=== PATIENT | female | born 1940 | race Caucasian/White ===

== ENCOUNTER 2021-02-06 10:03 | Inpatient (IN) | payer MEDICARE ==
[2021-02-06 10:41] LABS: Mean Corpuscular HGB CONC 33.2 g/dL (32.0-36.0); Mean Corpuscular Hemoglobin 30.4 pg (27.0-31.0); Mean Corpuscular Volume 91.5 fL (78.0-98.0); Mean Platelet Volume 8.1 fL (7.4-10.4); Platelet Count 198 thou/uL (130-400); RBC Distribution Width 16.5 % (11.5-14.5); Red Blood Cell (RBC) Count 2.63 mill/uL (4.20-5.40); White Blood Cell (WBC) Count 11.3 thou/uL (4.8-10.8)
[2021-02-06] MEDS ORDERED: Cefepime 2 GM VIAL ONE (10:52)
[2021-02-06 10:54] LABS: Bilirubin Negative (Negative); Blood, Urine Large (Negative); Glucose, Urine (Dipstick) Negative (Negative); Ketone, Urine Negative (Negative); Leukocyte Large (Negative); Nitrite Positive (Negative); Protein, Urine (Dipstick) 30 mg/dL (Neg-Trace); Urobilinogen 0.2 mg/dL (Less than 2); pH, Urine 5.5 (5.0-9.0)
[2021-02-06 11:03] LABS: Clarity Turbid (Clear)
[2021-02-06 11:04] LABS: Bacteria/HPF 4+ HPF (None Seen); WBC/HPF Greater Than 50 HPF (0-3)
[2021-02-06 11:04] LABS: Prothrombin Time 91.6 sec (12.0-14.7)
[2021-02-06 11:05] LABS: ALT (SGPT) 21 U/L (8-55); AST (SGOT) 23 U/L (5-34); Albumin 2.9 g/dL (3.4-4.8); Alkaline Phosphatase 112 U/L (40-110); Anion Gap 15 mmol/L (10-20); BUN (Urea Nitrogen) 65 mg/dL (9.8-20.1); Bilirubin, Total 0.5 mg/dL (0.2-1.2); Calc. Creatinine Clearance 0 mL/min (70-130); Calcium 8.4 mg/dL (7.8-10.44); Carbon Dioxide 31 mmol/L (23-31); Chloride 94 mmol/L (98-107); Globulin 2.9 g/dL (2.4-3.5); Glucose 109 mg/dL (83-110); INR-International Normal Ratio 11.5; PTT 177.5 sec (22.9-36.1); Potassium 3.6 mmol/L (3.5-5.1); Protein, Total 5.8 g/dL (5.8-8.1); Sodium 136 mmol/L (136-145)
[2021-02-06 11:22] LABS: Band 17 % (5-11); Eosinophils 1 % (0-10); Lymphocytes 15 % (21-51); MDiff Complete? YES; Metamyelocyte 2 % (0-0); Monocytes 9 % (0-10); Myelocyte 2 % (0-0); Neutrophil 54 % (42-75); Nucleated RBC 1 % (0); Platelet Morphology Comment Appears Adequate; Polychromasia SLIGHT = 2-3 cells (100X) (0-2/hpf)
[2021-02-06 11:27] LABS: CKMB 2.3 ng/mL (0-6.6)
[2021-02-06] MEDS ORDERED: Vancomycin 1 GM/200 ML BAG ONE (11:27)
[2021-02-06] MEDS ORDERED: Phytonadione 10 MG/ML AMP PO SCH (12:00)
[2021-02-06 12:18] LABS: SARS-CoV-2 NAA Rapid Test Not Detected (NotDetected)
[2021-02-06 13:45] LABS: Hemoglobin 7.6 g/dL (12.0-16.0); Mean Corpuscular HGB CONC 33.2 g/dL (32.0-36.0); Mean Corpuscular Hemoglobin 30.3 pg (27.0-31.0); Mean Corpuscular Volume 91.5 fL (78.0-98.0); Mean Platelet Volume 8.1 fL (7.4-10.4); Platelet Count 186 thou/uL (130-400); RBC Distribution Width 16.5 % (11.5-14.5); Red Blood Cell (RBC) Count 2.49 mill/uL (4.20-5.40); White Blood Cell (WBC) Count 11.8 thou/uL (4.8-10.8)
[2021-02-06 13:58] LABS: Prothrombin Time 99.3 sec (12.0-14.7)
[2021-02-06] MEDS ORDERED: cefTRIAXone\\ROCEPHIN 1 GM in Sodium Chloride 0.9% 100 ML IVPB SCH (14:00)
[2021-02-06 14:02] LABS: INR-International Normal Ratio 12.7; PTT 190.7 sec (22.9-36.1)
[2021-02-06 14:14] LABS: Anisocytosis SLIGHT = 6-15 cells (100X) (0-5/hpf); Band 33 % (5-11); Lymphocytes 8 % (21-51); MDiff Complete? YES; Metamyelocyte 2 % (0-0); Monocytes 9 % (0-10); Myelocyte 2 % (0-0); Neutrophil 44 % (42-75); Platelet Morphology Comment Appears Adequate; Polychromasia MODERATE = 3-4 cells (100X) (0-2/hpf); Reactive Lymphocytes 2 % (0-10)
[2021-02-06] MEDS ORDERED: Piperacillin/Tazobactam 3.375 GM VIAL ONE (15:04)
[2021-02-06] MEDS: Sodium Chloride 0.9% 1,000 ML IV SCH (15:09)
[2021-02-06] MEDS: Piperacillin/Tazobactam 3.375 GM in Sodium Chloride 0.9% 100 ML IVPB SCH ×2 (15:15→21:08)
[2021-02-06] MEDS ORDERED: Phytonadione 5 MG in Sodium Chloride 0.9% 50 ML IVPB SCH (18:00)
[2021-02-06] MEDS: Famotidine/PF 20 mg/2ml Vial SLOW IVP SCH (21:08)
[2021-02-06] MEDS: Guaifenesin DM 100-10/5 ML UDCUP PO PRN (21:08)
[2021-02-07 01:50] LABS: Hemoglobin 7.2 g/dL (12.0-16.0); Mean Corpuscular HGB CONC 33.9 g/dL (32.0-36.0); Mean Corpuscular Volume 91.5 fL (78.0-98.0); Mean Platelet Volume 8.2 fL (7.4-10.4); Platelet Count 189 thou/uL (130-400); RBC Distribution Width 16.7 % (11.5-14.5); Red Blood Cell (RBC) Count 2.31 mill/uL (4.20-5.40); White Blood Cell (WBC) Count 12.1 thou/uL (4.8-10.8)
[2021-02-07 01:56] LABS: INR-International Normal Ratio 1.9; Prothrombin Time 21.8 sec (12.0-14.7)
[2021-02-07 01:57] LABS: PTT 67.2 sec (22.9-36.1)
[2021-02-07 02:14] LABS: Band 15 % (5-11); Lymphocytes 11 % (21-51); MDiff Complete? YES; Metamyelocyte 1 % (0-0); Monocytes 7 % (0-10); Myelocyte 1 % (0-0); Neutrophil 65 % (42-75)
[2021-02-07 03:23] LABS: Anion Gap 14 mmol/L (10-20); BUN (Urea Nitrogen) 59 mg/dL (9.8-20.1); Calc. Creatinine Clearance 41 mL/min (70-130); Carbon Dioxide 24 mmol/L (23-31); Chloride 101 mmol/L (98-107); Glucose 107 mg/dL (83-110); Potassium 3.4 mmol/L (3.5-5.1); Sodium 136 mmol/L (136-145)
[2021-02-07] MEDS: Piperacillin/Tazobactam 3.375 GM in Sodium Chloride 0.9% 100 ML IVPB SCH ×2 (05:32→15:19)
[2021-02-07] MEDS: Sodium Chloride 0.9% 1,000 ML IV SCH ×3 (05:42→21:21)
[2021-02-07] MEDS: Mometasone 200 MCG/Formoterol 5 MCG 120 PUFF INHALER INH SCH ×2 (07:10→19:14)
[2021-02-07 07:55] LABS: PT - Undiluted 75.4 SEC (12.0-14.7); PTT - Undiluted 140.4 SEC (22.9-36.1)
[2021-02-07 08:03] LABS: PTT 1:1 Mix 39.9 SEC
[2021-02-07 09:43] LABS: PT 1:1 37C-90 min. Incubation 21.2 SEC
[2021-02-07 09:44] LABS: PTT 1:1 37C/90 MIN Incubation 56.9 SEC
[2021-02-07] MEDS: Trospium 20 MG TAB PO SCH (09:55)
[2021-02-07] MEDS: Carvedilol 6.25 MG TAB PO SCH ×2 (09:56→21:20)
[2021-02-07] MEDS: Digoxin 0.125 MG TAB PO SCH (09:56)
[2021-02-07 13:54] LABS: INR-International Normal Ratio 1.3; PTT 43.6 sec (22.9-36.1); Prothrombin Time 16.9 sec (12.0-14.7)
[2021-02-07 14:02] LABS: Hemoglobin 6.9 g/dL (12.0-16.0); Mean Corpuscular Hemoglobin 31.2 pg (27.0-31.0); Mean Platelet Volume 8.2 fL (7.4-10.4); Platelet Count 200 thou/uL (130-400); RBC Distribution Width 16.7 % (11.5-14.5); Red Blood Cell (RBC) Count 2.21 mill/uL (4.20-5.40)
[2021-02-07 14:25] LABS: Band 15 % (5-11); Bite Cells SLIGHT = 2-5 cells (100X) (0-1/hpf); Hypochromia SLIGHT = 6-15 cells (100X) (0-5/hpf); Lymphocytes 13 % (21-51); MDiff Complete? YES; Metamyelocyte 2 % (0-0); Monocytes 12 % (0-10); Myelocyte 1 % (0-0); Neutrophil 57 % (42-75); Ovalocytes SLIGHT = 2-5 cells (100X) (0-1/hpf); Platelet Morphology Comment Appears Adequate; Polychromasia MODERATE = 3-4 cells (100X) (0-2/hpf)
[2021-02-07] MEDS: Benzonatate 100 MG CAP PO PRN (16:17)
[2021-02-07] MEDS: Warfarin Sodium 5 MG TAB PO SCH (16:18)
[2021-02-07] MEDS ORDERED: Heparin 10,000 UNITS/ 10 ML VIAL SLOW IVP SCH (18:15)
[2021-02-07] MEDS: Guaifenesin DM 100-10/5 ML UDCUP PO PRN (18:27)
[2021-02-07 19:10] LABS: Hemoglobin 6.4 g/dL (12.0-16.0); Platelet Count 209 thou/uL (130-400)
[2021-02-07] MEDS: Atorvastatin Calcium 40 MG TAB PO SCH (21:20)
[2021-02-07] MEDS: Famotidine/PF 20 mg/2ml Vial SLOW IVP SCH (21:20)
[2021-02-07] MEDS: traZODone HCl 50 MG TAB PO SCH (21:20)
[2021-02-07] MEDS: Pramipexole Di-HCl 0.25 MG TAB PO SCH (21:20)
[2021-02-07] MEDS: Heparin 25,000 units/D5W 500 ML IVPB SCH (22:41)
[2021-02-07] MEDS: Prazosin HCl 1 MG CAP PO SCH (22:42)
[2021-02-08] MEDS: Piperacillin/Tazobactam 3.375 GM in Sodium Chloride 0.9% 100 ML IVPB SCH ×4 (00:36→21:23)
[2021-02-08 01:26] LABS: PTT 250.8 sec (22.9-36.1)
[2021-02-08 01:36] LABS: Hemoglobin 7.3 g/dL (12.0-16.0); Mean Corpuscular Hemoglobin 30.3 pg (27.0-31.0); Mean Corpuscular Volume 91.8 fL (78.0-98.0); Mean Platelet Volume 8.2 fL (7.4-10.4); Platelet Count 201 thou/uL (130-400); RBC Distribution Width 16.1 % (11.5-14.5); White Blood Cell (WBC) Count 14.3 thou/uL (4.8-10.8)
[2021-02-08 02:02] LABS: Eosinophils 1 % (0-10); Lymphocytes 17 % (21-51); MDiff Complete? YES; Metamyelocyte 7 % (0-0); Monocytes 7 % (0-10); Myelocyte 1 % (0-0); Neutrophil 67 % (42-75); Platelet Morphology Comment Appears Adequate
[2021-02-08 02:04] LABS: INR-International Normal Ratio 1.6; Prothrombin Time 19.6 sec (12.0-14.7)
[2021-02-08 02:28] LABS: PTT Greater than 250.0 sec (22.9-36.1)
[2021-02-08] MEDS: Sodium Chloride 0.9% 1,000 ML IV SCH ×2 (06:36→16:20)
[2021-02-08] MEDS: Mometasone 200 MCG/Formoterol 5 MCG 120 PUFF INHALER INH SCH ×2 (07:21→19:34)
[2021-02-08] MEDS: Vitamin E 400 UNITS CAP PO SCH (09:18)
[2021-02-08] MEDS: Carvedilol 6.25 MG TAB PO SCH ×2 (09:18→21:20)
[2021-02-08] MEDS: Calcium Carbonate 600 MG + Vit D TAB PO SCH (09:18)
[2021-02-08] MEDS: Ferrous Sulfate 325 MG TAB PO SCH (09:18)
[2021-02-08] MEDS: Trospium 20 MG TAB PO SCH (09:18)
[2021-02-08] MEDS: Digoxin 0.125 MG TAB PO SCH (09:18)
[2021-02-08] MEDS: Cholecalciferol 1,000 UNITS (25 MCG) TAB PO SCH (09:18)
[2021-02-08 11:17] LABS: Actual Bicarbonate (HCO3a) 25.5 mEq/L (22-28); Base Excess (BEa) 0.5 mEq/L (-2.0 to +3.0); CO2 Tension 42.8 mmHg (35.0-45.0); Carboxyhemoglobin (COHb) 1.1 gm% (0.0-3.0); Hemoglobin (Hb) 8.5 g/dL (12.0-16.0); O2 Tension (PaO2), arterial 79.1 mmHg (> 60.0); Potassium - ABG Lab 3.31 mmol/L (3.70-5.30); pH, Arterial 7.39 (7.35-7.45)
[2021-02-08 11:18] LABS: Puncture Site RBA
[2021-02-08 12:36] LABS: PTT 229.6 sec (22.9-36.1)
[2021-02-08] MEDS: Warfarin Sodium 5 MG TAB PO SCH (17:25)
[2021-02-08] MEDS: traZODone HCl 50 MG TAB PO SCH (21:21)
[2021-02-08] MEDS: Atorvastatin Calcium 40 MG TAB PO SCH (21:21)
[2021-02-08] MEDS: Prazosin HCl 1 MG CAP PO SCH (21:21)
[2021-02-08] MEDS: Pramipexole Di-HCl 0.25 MG TAB PO SCH (21:21)
[2021-02-08] MEDS: Famotidine/PF 20 mg/2ml Vial SLOW IVP SCH (21:22)
[2021-02-08 21:56] LABS: PTT 180.4 sec (22.9-36.1)
[2021-02-08] MEDS: Guaifenesin DM 100-10/5 ML UDCUP PO PRN (22:06)
[2021-02-09] MEDS: Heparin 25,000 units/D5W 500 ML IVPB SCH (02:59)
[2021-02-09] MEDS: Sodium Chloride 0.9% 1,000 ML IV SCH (03:03)
[2021-02-09 04:36] LABS: INR-International Normal Ratio 1.8; Prothrombin Time 21.5 sec (12.0-14.7)
[2021-02-09 04:56] LABS: Band 16 % (5-11); Hemoglobin 7.4 g/dL (12.0-16.0); Lymphocytes 9 % (21-51); MDiff Complete? YES; Mean Corpuscular HGB CONC 33.3 g/dL (32.0-36.0); Mean Corpuscular Hemoglobin 30.6 pg (27.0-31.0); Mean Corpuscular Volume 91.8 fL (78.0-98.0); Mean Platelet Volume 8.5 fL (7.4-10.4); Metamyelocyte 6 % (0-0); Monocytes 11 % (0-10); Neutrophil 58 % (42-75); Platelet Count 241 thou/uL (130-400); Platelet Morphology Comment Appears Adequate; RBC Distribution Width 16.2 % (11.5-14.5); Red Blood Cell (RBC) Count 2.41 mill/uL (4.20-5.40); White Blood Cell (WBC) Count 13.2 thou/uL (4.8-10.8)
[2021-02-09 05:00] LABS: Anion Gap 13 mmol/L (10-20); BUN (Urea Nitrogen) 33 mg/dL (9.8-20.1); Calc. Creatinine Clearance 51 mL/min (70-130); Calcium 8.3 mg/dL (7.8-10.44); Carbon Dioxide 21 mmol/L (23-31); Chloride 106 mmol/L (98-107); Glucose 92 mg/dL (83-110); Potassium 3.4 mmol/L (3.5-5.1); Sodium 137 mmol/L (136-145)
[2021-02-09] MEDS: Piperacillin/Tazobactam 3.375 GM in Sodium Chloride 0.9% 100 ML IVPB SCH ×3 (05:44→21:47)
[2021-02-09] MEDS: Mometasone 200 MCG/Formoterol 5 MCG 120 PUFF INHALER INH SCH ×2 (07:27→18:53)
[2021-02-09] MEDS: Ferrous Sulfate 325 MG TAB PO SCH (09:28)
[2021-02-09] MEDS: Vitamin E 400 UNITS CAP PO SCH (09:29)
[2021-02-09] MEDS: Trospium 20 MG TAB PO SCH (09:29)
[2021-02-09] MEDS: Digoxin 0.125 MG TAB PO SCH (09:30)
[2021-02-09] MEDS: Carvedilol 6.25 MG TAB PO SCH ×2 (09:31→21:06)
[2021-02-09] MEDS: Calcium Carbonate 600 MG + Vit D TAB PO SCH (09:32)
[2021-02-09] MEDS: Cholecalciferol 1,000 UNITS (25 MCG) TAB PO SCH (09:32)
[2021-02-09] MEDS: Acetaminophen 325 MG TAB PO PRN (10:33)
[2021-02-09] MEDS: Guaifenesin DM 100-10/5 ML UDCUP PO PRN (11:34)
[2021-02-09] MEDS: Benzonatate 100 MG CAP PO PRN (14:37)
[2021-02-09 16:12] LABS: PTT 132.5 sec (22.9-36.1)
[2021-02-09] MEDS: Warfarin Sodium 5 MG TAB PO SCH (16:26)
[2021-02-09 18:29] LABS: Hemoglobin 7.3 g/dL (12.0-16.0); Platelet Count 236 thou/uL (130-400)
[2021-02-09] MEDS: Famotidine/PF 20 mg/2ml Vial SLOW IVP SCH (21:06)
[2021-02-09] MEDS: traZODone HCl 50 MG TAB PO SCH (21:06)
[2021-02-09] MEDS: Atorvastatin Calcium 40 MG TAB PO SCH (21:06)
[2021-02-09] MEDS: Prazosin HCl 1 MG CAP PO SCH (21:06)
[2021-02-09] MEDS: Pramipexole Di-HCl 0.25 MG TAB PO SCH (21:06)
[2021-02-10] MEDS: Acetaminophen 325 MG TAB PO PRN ×2 (04:27→17:03)
[2021-02-10 04:33] LABS: Hemoglobin 7.1 g/dL (12.0-16.0); Mean Corpuscular HGB CONC 33.9 g/dL (32.0-36.0); Mean Corpuscular Hemoglobin 31.3 pg (27.0-31.0); Mean Corpuscular Volume 92.3 fL (78.0-98.0); Mean Platelet Volume 8.1 fL (7.4-10.4); Platelet Count 263 thou/uL (130-400); RBC Distribution Width 16.5 % (11.5-14.5); Red Blood Cell (RBC) Count 2.28 mill/uL (4.20-5.40); White Blood Cell (WBC) Count 12.2 thou/uL (4.8-10.8)
[2021-02-10 04:35] LABS: INR-International Normal Ratio 2.9; Prothrombin Time 30.7 sec (12.0-14.7)
[2021-02-10] MEDS: Benzonatate 100 MG CAP PO PRN ×2 (04:38→21:33)
[2021-02-10 04:45] LABS: Anion Gap 13 mmol/L (10-20); BUN (Urea Nitrogen) 26 mg/dL (9.8-20.1); Calc. Creatinine Clearance 53 mL/min (70-130); Calcium 8.5 mg/dL (7.8-10.44); Carbon Dioxide 22 mmol/L (23-31); Chloride 107 mmol/L (98-107); Glucose 123 mg/dL (83-110); Potassium 3.6 mmol/L (3.5-5.1); Sodium 138 mmol/L (136-145)
[2021-02-10 04:54] LABS: Band 18 % (5-11); Eosinophils 3 % (0-10); Lymphocytes 8 % (21-51); MDiff Complete? YES; Metamyelocyte 5 % (0-0); Monocytes 6 % (0-10); Myelocyte 4 % (0-0); Neutrophil 56 % (42-75); Platelet Morphology Comment Appears Adequate
[2021-02-10] MEDS: Piperacillin/Tazobactam 3.375 GM in Sodium Chloride 0.9% 100 ML IVPB SCH ×3 (06:24→21:33)
[2021-02-10] MEDS: Mometasone 200 MCG/Formoterol 5 MCG 120 PUFF INHALER INH SCH ×2 (07:21→19:09)
[2021-02-10] MEDS: Trospium 20 MG TAB PO SCH (08:08)
[2021-02-10] MEDS: Digoxin 0.125 MG TAB PO SCH (08:08)
[2021-02-10] MEDS: Calcium Carbonate 600 MG + Vit D TAB PO SCH (08:09)
[2021-02-10] MEDS: Ferrous Sulfate 325 MG TAB PO SCH (08:09)
[2021-02-10] MEDS: Vitamin E 400 UNITS CAP PO SCH (08:09)
[2021-02-10] MEDS: Cholecalciferol 1,000 UNITS (25 MCG) TAB PO SCH (08:09)
[2021-02-10] MEDS: Carvedilol 6.25 MG TAB PO SCH ×2 (08:09→21:32)
[2021-02-10] MEDS: Warfarin Sodium 5 MG TAB PO SCH (17:04)
[2021-02-10] MEDS: Guaifenesin DM 100-10/5 ML UDCUP PO PRN (18:21)
[2021-02-10] MEDS: Prazosin HCl 1 MG CAP PO SCH (21:32)
[2021-02-10] MEDS: Atorvastatin Calcium 40 MG TAB PO SCH (21:32)
[2021-02-10] MEDS: Famotidine/PF 20 mg/2ml Vial SLOW IVP SCH (21:32)
[2021-02-10] MEDS: Pramipexole Di-HCl 0.25 MG TAB PO SCH (21:32)
[2021-02-10] MEDS: traZODone HCl 50 MG TAB PO SCH (21:33)
[2021-02-11] MEDS: Piperacillin/Tazobactam 3.375 GM in Sodium Chloride 0.9% 100 ML IVPB SCH ×3 (05:59→21:48)
[2021-02-11 07:11] LABS: Prothrombin Time 42.2 sec (12.0-14.7)
[2021-02-11] MEDS: Mometasone 200 MCG/Formoterol 5 MCG 120 PUFF INHALER INH SCH ×2 (07:12→19:37)
[2021-02-11 07:27] LABS: INR-International Normal Ratio 4.3
[2021-02-11] MEDS: Calcium Carbonate 600 MG + Vit D TAB PO SCH (08:41)
[2021-02-11] MEDS: Trospium 20 MG TAB PO SCH (08:41)
[2021-02-11] MEDS: Carvedilol 6.25 MG TAB PO SCH ×2 (08:42→21:49)
[2021-02-11] MEDS: Cholecalciferol 1,000 UNITS (25 MCG) TAB PO SCH (08:42)
[2021-02-11] MEDS: Digoxin 0.125 MG TAB PO SCH (08:42)
[2021-02-11] MEDS: Vitamin E 400 UNITS CAP PO SCH (08:43)
[2021-02-11] MEDS: Ferrous Sulfate 325 MG TAB PO SCH (08:53)
[2021-02-11] MEDS ORDERED: Furosemide 40 MG/4 ML VIAL SLOW IVP SCH (16:15)
[2021-02-11] MEDS ORDERED: Warfarin Sodium 5 MG TAB PO SCH (17:00)
[2021-02-11 17:38] LABS: Hemoglobin 6.9 g/dL (12.0-16.0); Platelet Count 369 thou/uL (130-400)
[2021-02-11] MEDS ORDERED: Cepastat Lozenges 1 LOZ PO PRN (19:36)
[2021-02-11] MEDS: Atorvastatin Calcium 40 MG TAB PO SCH (21:49)
[2021-02-11] MEDS: traZODone HCl 50 MG TAB PO SCH (21:49)
[2021-02-11] MEDS: Pramipexole Di-HCl 0.25 MG TAB PO SCH (21:49)
[2021-02-11] MEDS: Prazosin HCl 1 MG CAP PO SCH (23:53)
[2021-02-12 04:31] LABS: Prothrombin Time 40.9 sec (12.0-14.7)
[2021-02-12 04:32] LABS: INR-International Normal Ratio 4.1
[2021-02-12] MEDS: Piperacillin/Tazobactam 3.375 GM in Sodium Chloride 0.9% 100 ML IVPB SCH ×3 (05:40→21:54)
[2021-02-12] MEDS: Mometasone 200 MCG/Formoterol 5 MCG 120 PUFF INHALER INH SCH ×2 (07:56→18:35)
[2021-02-12] MEDS: Carvedilol 6.25 MG TAB PO SCH ×2 (09:10→19:56)
[2021-02-12] MEDS: Trospium 20 MG TAB PO SCH (09:10)
[2021-02-12] MEDS: Digoxin 0.125 MG TAB PO SCH (09:10)
[2021-02-12] MEDS: Ferrous Sulfate 325 MG TAB PO SCH (09:10)
[2021-02-12] MEDS: Calcium Carbonate 600 MG + Vit D TAB PO SCH (09:10)
[2021-02-12] MEDS: Cholecalciferol 1,000 UNITS (25 MCG) TAB PO SCH (09:10)
[2021-02-12] MEDS: Vitamin E 400 UNITS CAP PO SCH (10:43)
[2021-02-12 10:56] LABS: Hemoglobin 8.2 g/dL (12.0-16.0); Mean Corpuscular HGB CONC 32.2 g/dL (32.0-36.0); Mean Corpuscular Hemoglobin 29.8 pg (27.0-31.0); Mean Corpuscular Volume 92.4 fL (78.0-98.0); Mean Platelet Volume 7.7 fL (7.4-10.4); Platelet Count 361 thou/uL (130-400); RBC Distribution Width 16.3 % (11.5-14.5); Red Blood Cell (RBC) Count 2.76 mill/uL (4.20-5.40); White Blood Cell (WBC) Count 16.8 thou/uL (4.8-10.8)
[2021-02-12 11:03] LABS: Anion Gap 15 mmol/L (10-20); BUN (Urea Nitrogen) 16 mg/dL (9.8-20.1); Calc. Creatinine Clearance 58 mL/min (70-130); Calcium 8.4 mg/dL (7.8-10.44); Carbon Dioxide 22 mmol/L (23-31); Chloride 106 mmol/L (98-107); Glucose 121 mg/dL (83-110); Potassium 3.3 mmol/L (3.5-5.1); Sodium 140 mmol/L (136-145)
[2021-02-12 11:42] LABS: Lymphocytes 4 % (21-51); MDiff Complete? YES; Monocytes 14 % (0-10); Neutrophil 82 % (42-75); Platelet Morphology Comment Appears Adequate
[2021-02-12] MEDS: Atorvastatin Calcium 40 MG TAB PO SCH (19:56)
[2021-02-12] MEDS: traZODone HCl 50 MG TAB PO SCH (19:57)
[2021-02-12] MEDS: Pramipexole Di-HCl 0.25 MG TAB PO SCH (19:57)
[2021-02-12] MEDS: Prazosin HCl 1 MG CAP PO SCH (21:59)
[2021-02-13 04:55] LABS: Prothrombin Time 43.3 sec (12.0-14.7)
[2021-02-13 04:58] LABS: INR-International Normal Ratio 4.4
[2021-02-13 05:09] LABS: Band 2 % (5-11); Hemoglobin 7.8 g/dL (12.0-16.0); Hypochromia SLIGHT = 6-15 cells (100X) (0-5/hpf); Lymphocytes 9 % (21-51); MDiff Complete? YES; Mean Corpuscular HGB CONC 32.1 g/dL (32.0-36.0); Mean Corpuscular Hemoglobin 29.6 pg (27.0-31.0); Mean Corpuscular Volume 92.1 fL (78.0-98.0); Mean Platelet Volume 7.7 fL (7.4-10.4); Monocytes 5 % (0-10); Neutrophil 84 % (42-75); Nucleated RBC 1 % (0); Platelet Count 369 thou/uL (130-400); Platelet Morphology Comment Appears Adequate; RBC Distribution Width 16.3 % (11.5-14.5); Red Blood Cell (RBC) Count 2.63 mill/uL (4.20-5.40); White Blood Cell (WBC) Count 13.9 thou/uL (4.8-10.8)
[2021-02-13 05:13] LABS: Anion Gap 11 mmol/L (10-20); BUN (Urea Nitrogen) 13 mg/dL (9.8-20.1); Calc. Creatinine Clearance 65 mL/min (70-130); Calcium 8.3 mg/dL (7.8-10.44); Carbon Dioxide 25 mmol/L (23-31); Chloride 109 mmol/L (98-107); Glucose 79 mg/dL (83-110); Potassium 3.3 mmol/L (3.5-5.1); Sodium 142 mmol/L (136-145)
[2021-02-13] MEDS: Piperacillin/Tazobactam 3.375 GM in Sodium Chloride 0.9% 100 ML IVPB SCH ×3 (06:27→21:54)
[2021-02-13] MEDS: Mometasone 200 MCG/Formoterol 5 MCG 120 PUFF INHALER INH SCH ×2 (07:24→19:30)
[2021-02-13] MEDS: Ferrous Sulfate 325 MG TAB PO SCH (08:20)
[2021-02-13] MEDS: Trospium 20 MG TAB PO SCH (08:21)
[2021-02-13] MEDS: Carvedilol 6.25 MG TAB PO SCH ×2 (08:21→20:35)
[2021-02-13] MEDS: Calcium Carbonate 600 MG + Vit D TAB PO SCH (08:21)
[2021-02-13] MEDS: Cholecalciferol 1,000 UNITS (25 MCG) TAB PO SCH (08:21)
[2021-02-13] MEDS: Digoxin 0.125 MG TAB PO SCH (08:21)
[2021-02-13] MEDS: Acetaminophen 325 MG TAB PO PRN ×3 (08:24→21:54)
[2021-02-13] MEDS: Benzonatate 100 MG CAP PO PRN ×3 (08:26→21:54)
[2021-02-13] MEDS ORDERED: Polyethylene Glycol 3350 17 GM Packet PO SCH (11:45)
[2021-02-13] MEDS ORDERED: Phytonadione 5 MG TAB PO SCH (11:45)
[2021-02-13] MEDS ORDERED: Fleet Enema 133 ML BOT PR SCH (16:45)
[2021-02-13 18:17] LABS: Hemoglobin 8.4 g/dL (12.0-16.0); Platelet Count 385 thou/uL (130-400)
[2021-02-13] MEDS: Atorvastatin Calcium 40 MG TAB PO SCH (20:36)
[2021-02-13] MEDS: traZODone HCl 50 MG TAB PO SCH (20:36)
[2021-02-13] MEDS: Pramipexole Di-HCl 0.25 MG TAB PO SCH (21:53)
[2021-02-13] MEDS: Prazosin HCl 1 MG CAP PO SCH (21:53)
[2021-02-13] MEDS: Fluticasone Propionate Nasal Spray 16 gm Bottle NASAL PRN (21:54)
[2021-02-14] MEDS: Piperacillin/Tazobactam 3.375 GM in Sodium Chloride 0.9% 100 ML IVPB SCH ×2 (05:20→05:33)
[2021-02-14] MEDS ORDERED: Polyethylene Glycol 3350 17 GM Packet PO PRN (05:38)
[2021-02-14 06:46] LABS: INR-International Normal Ratio 1.9; Prothrombin Time 21.9 sec (12.0-14.7)
[2021-02-14 07:00] LABS: Anion Gap 9 mmol/L (10-20); BUN (Urea Nitrogen) 13 mg/dL (9.8-20.1); Calc. Creatinine Clearance 67 mL/min (70-130); Calcium 8.3 mg/dL (7.8-10.44); Carbon Dioxide 27 mmol/L (23-31); Chloride 107 mmol/L (98-107); Glucose 96 mg/dL (83-110); Potassium 3.4 mmol/L (3.5-5.1); Sodium 140 mmol/L (136-145)
[2021-02-14] MEDS: Mometasone 200 MCG/Formoterol 5 MCG 120 PUFF INHALER INH SCH ×2 (07:27→21:04)
[2021-02-14 07:50] LABS: Anisocytosis SLIGHT = 6-15 cells (100X) (0-5/hpf); Band 6 % (5-11); Lymphocytes 10 % (21-51); MDiff Complete? YES; Mean Corpuscular HGB CONC 32.6 g/dL (32.0-36.0); Mean Corpuscular Hemoglobin 30.2 pg (27.0-31.0); Mean Corpuscular Volume 92.7 fL (78.0-98.0); Mean Platelet Volume 7.4 fL (7.4-10.4); Metamyelocyte 1 % (0-0); Monocytes 4 % (0-10); Myelocyte 1 % (0-0); Neutrophil 78 % (42-75); Platelet Count 372 thou/uL (130-400); Platelet Morphology Comment Appears Adequate; Polychromasia SLIGHT = 2-3 cells (100X) (0-2/hpf); RBC Distribution Width 16.6 % (11.5-14.5); Red Blood Cell (RBC) Count 2.63 mill/uL (4.20-5.40); White Blood Cell (WBC) Count 12.9 thou/uL (4.8-10.8)
[2021-02-14] MEDS: Trospium 20 MG TAB PO SCH (08:15)
[2021-02-14] MEDS: Ferrous Sulfate 325 MG TAB PO SCH (08:15)
[2021-02-14] MEDS: Digoxin 0.125 MG TAB PO SCH (08:15)
[2021-02-14] MEDS: Calcium Carbonate 600 MG + Vit D TAB PO SCH (08:15)
[2021-02-14] MEDS: Cholecalciferol 1,000 UNITS (25 MCG) TAB PO SCH (08:15)
[2021-02-14] MEDS: Carvedilol 6.25 MG TAB PO SCH ×2 (08:15→21:36)
[2021-02-14] MEDS: Fluticasone Propionate Nasal Spray 16 gm Bottle NASAL PRN (08:27)
[2021-02-14] MEDS: Acetaminophen 325 MG TAB PO PRN ×3 (08:30→21:34)
[2021-02-14] MEDS: Benzonatate 100 MG CAP PO PRN (08:30)
[2021-02-14 11:42] VITALS: BMI 39.5
[2021-02-14] MEDS ORDERED: Chlorhexidine Gluconate 15 ML UDCUP SSP SCH (16:30)
[2021-02-14] MEDS ORDERED: Benzonatate 100 MG CAP PO SCH (16:30)
[2021-02-14] MEDS: traZODone HCl 50 MG TAB PO SCH (21:35)
[2021-02-14] MEDS: Prazosin HCl 1 MG CAP PO SCH (21:35)
[2021-02-14] MEDS: Benzonatate 100 MG CAP PO SCH (21:35)
[2021-02-14] MEDS: Chlorhexidine Gluconate 15 ML UDCUP SSP SCH (21:36)
[2021-02-14] MEDS: Atorvastatin Calcium 40 MG TAB PO SCH (21:36)
[2021-02-14] MEDS: Pramipexole Di-HCl 0.25 MG TAB PO SCH (21:36)
[2021-02-15 06:26] LABS: #Eosinphils 0.2 thou/uL (0.0-0.7); #Lymphocytes 1.2 thou/uL (1.20-3.40); #Monocytes 0.7 thou/uL (0.11-0.59); %Basophils 0.3 % (0.0-1.0); %Lymphocytes 10.1 % (21.0-51.0); %Monocytes 5.7 % (0.0-10.0); Hemoglobin 8.3 g/dL (12.0-16.0); Mean Corpuscular HGB CONC 32.5 g/dL (32.0-36.0); Mean Corpuscular Hemoglobin 30.2 pg (27.0-31.0); Mean Corpuscular Volume 92.9 fL (78.0-98.0); Mean Platelet Volume 7.3 fL (7.4-10.4); Platelet Count 370 thou/uL (130-400); RBC Distribution Width 16.4 % (11.5-14.5); Red Blood Cell (RBC) Count 2.75 mill/uL (4.20-5.40); White Blood Cell (WBC) Count 12.2 thou/uL (4.8-10.8)
[2021-02-15] MEDS: Mometasone 200 MCG/Formoterol 5 MCG 120 PUFF INHALER INH SCH ×2 (06:29→20:33)
[2021-02-15 06:32] LABS: INR-International Normal Ratio 1.6
[2021-02-15 06:45] LABS: Anion Gap 11 mmol/L (10-20); BUN (Urea Nitrogen) 13 mg/dL (9.8-20.1); Calc. Creatinine Clearance 76 mL/min (70-130); Calcium 8.5 mg/dL (7.8-10.44); Carbon Dioxide 27 mmol/L (23-31); Chloride 108 mmol/L (98-107); Glucose 98 mg/dL (83-110); Sodium 142 mmol/L (136-145)
[2021-02-15] MEDS: Chlorhexidine Gluconate 15 ML UDCUP SSP SCH ×3 (08:16→21:15)
[2021-02-15] MEDS: Ferrous Sulfate 325 MG TAB PO SCH (08:17)
[2021-02-15] MEDS: Benzonatate 100 MG CAP PO SCH ×3 (08:17→21:16)
[2021-02-15] MEDS: Calcium Carbonate 600 MG + Vit D TAB PO SCH (08:17)
[2021-02-15] MEDS: Cholecalciferol 1,000 UNITS (25 MCG) TAB PO SCH (08:18)
[2021-02-15] MEDS: Carvedilol 6.25 MG TAB PO SCH ×2 (08:18→21:16)
[2021-02-15] MEDS: Digoxin 0.125 MG TAB PO SCH (08:18)
[2021-02-15] MEDS: Trospium 20 MG TAB PO SCH (08:19)
[2021-02-15] MEDS: Polyethylene Glycol 3350 17 GM Packet PO SCH (08:19)
[2021-02-15] MEDS ORDERED: Furosemide 80 MG TAB PO SCH (11:45)
[2021-02-15] MEDS ORDERED: Warfarin Sodium 5 MG TAB PO SCH (12:15)
[2021-02-15] MEDS ORDERED: Magnesium Citrate 300 ML BOT PO SCH (15:30)
[2021-02-15 20:07] LABS: Hemoglobin 9.3 g/dL (12.0-16.0); Platelet Count 405 thou/uL (130-400)
[2021-02-15] MEDS: Pramipexole Di-HCl 0.25 MG TAB PO SCH (21:17)
[2021-02-15] MEDS: Atorvastatin Calcium 40 MG TAB PO SCH (21:18)
[2021-02-15] MEDS: Prazosin HCl 1 MG CAP PO SCH (21:18)
[2021-02-15] MEDS: traZODone HCl 50 MG TAB PO SCH (22:31)
[2021-02-16] MEDS: Mometasone 200 MCG/Formoterol 5 MCG 120 PUFF INHALER INH SCH ×2 (07:03→19:02)
[2021-02-16 08:07] LABS: #Eosinphils 0.2 thou/uL (0.0-0.7); #Monocytes 0.9 thou/uL (0.11-0.59); #Neutrophils 9.3 thou/uL (1.40-6.50); %Basophils 0.3 % (0.0-1.0); %Eosinophils 1.7 % (0.0-10.0); %Monocytes 7.7 % (0.0-10.0); %Neutrophils 81.3 % (42.0-75.0); Hemoglobin 8.7 g/dL (12.0-16.0); Mean Corpuscular HGB CONC 31.7 g/dL (32.0-36.0); Mean Corpuscular Hemoglobin 29.7 pg (27.0-31.0); Mean Corpuscular Volume 93.7 fL (78.0-98.0); Mean Platelet Volume 7.3 fL (7.4-10.4); Platelet Count 351 thou/uL (130-400); RBC Distribution Width 16.5 % (11.5-14.5); Red Blood Cell (RBC) Count 2.91 mill/uL (4.20-5.40); White Blood Cell (WBC) Count 11.4 thou/uL (4.8-10.8)
[2021-02-16 08:13] LABS: INR-International Normal Ratio 1.8; Prothrombin Time 21.6 sec (12.0-14.7)
[2021-02-16] MEDS: Digoxin 0.125 MG TAB PO SCH (09:49)
[2021-02-16] MEDS: Ferrous Sulfate 325 MG TAB PO SCH (09:49)
[2021-02-16] MEDS: Furosemide 80 MG TAB PO SCH (09:49)
[2021-02-16] MEDS: Trospium 20 MG TAB PO SCH (09:49)
[2021-02-16] MEDS: Chlorhexidine Gluconate 15 ML UDCUP SSP SCH ×3 (09:50→18:52)
[2021-02-16] MEDS: Benzonatate 100 MG CAP PO SCH ×3 (09:50→20:30)
[2021-02-16] MEDS: Calcium Carbonate 600 MG + Vit D TAB PO SCH (09:50)
[2021-02-16] MEDS: Polyethylene Glycol 3350 17 GM Packet PO SCH (09:50)
[2021-02-16] MEDS: Cholecalciferol 1,000 UNITS (25 MCG) TAB PO SCH (09:50)
[2021-02-16] MEDS: Carvedilol 6.25 MG TAB PO SCH ×2 (09:51→20:31)
[2021-02-16] MEDS ORDERED: Polyethylene Glycol 3350 17 GM Packet PO PRN (11:35)
[2021-02-16] MEDS ORDERED: Magnesium Citrate 300 ML BOT PO SCH (11:45)
[2021-02-16] MEDS ORDERED: Furosemide 40 MG TAB PO SCH (17:30)
[2021-02-16] MEDS: Warfarin Sodium 5 MG TAB PO SCH (18:42)
[2021-02-16] MEDS: Potassium Chloride 20 MEQ TAB PO SCH (18:43)
[2021-02-16] MEDS: Senokot S 8.6-50 MG TAB PO SCH (20:30)
[2021-02-16] MEDS: Prazosin HCl 1 MG CAP PO SCH (20:30)
[2021-02-16] MEDS: Atorvastatin Calcium 40 MG TAB PO SCH (20:31)
[2021-02-16] MEDS: Pramipexole Di-HCl 0.25 MG TAB PO SCH (20:31)
[2021-02-16] MEDS: traZODone HCl 50 MG TAB PO SCH (22:36)
[2021-02-17 06:30] LABS: #Eosinphils 0.1 thou/uL (0.0-0.7); #Lymphocytes 1.2 thou/uL (1.20-3.40); #Neutrophils 9.8 thou/uL (1.40-6.50); %Basophils 0.4 % (0.0-1.0); %Eosinophils 1.1 % (0.0-10.0); %Lymphocytes 10.1 % (21.0-51.0); %Monocytes 7.9 % (0.0-10.0); %Neutrophils 80.6 % (42.0-75.0); Hemoglobin 8.2 g/dL (12.0-16.0); Mean Corpuscular Hemoglobin 29.9 pg (27.0-31.0); Mean Corpuscular Volume 93.5 fL (78.0-98.0); Mean Platelet Volume 7.4 fL (7.4-10.4); Platelet Count 336 thou/uL (130-400); RBC Distribution Width 16.7 % (11.5-14.5); Red Blood Cell (RBC) Count 2.74 mill/uL (4.20-5.40); White Blood Cell (WBC) Count 12.2 thou/uL (4.8-10.8)
[2021-02-17 06:42] LABS: INR-International Normal Ratio 2.1; Prothrombin Time 23.6 sec (12.0-14.7)
[2021-02-17 06:56] LABS: Anion Gap 12 mmol/L (10-20); BUN (Urea Nitrogen) 17 mg/dL (9.8-20.1); Calc. Creatinine Clearance 67 mL/min (70-130); Calcium 8.6 mg/dL (7.8-10.44); Carbon Dioxide 30 mmol/L (23-31); Chloride 103 mmol/L (98-107); Glucose 107 mg/dL (83-110); Magnesium 1.8 mg/dL (1.6-2.6); Potassium 3.7 mmol/L (3.5-5.1); Sodium 141 mmol/L (136-145)
[2021-02-17] MEDS: Chlorhexidine Gluconate 15 ML UDCUP SSP SCH ×3 (08:31→21:36)
[2021-02-17] MEDS: Calcium Carbonate 600 MG + Vit D TAB PO SCH (08:31)
[2021-02-17] MEDS: Carvedilol 6.25 MG TAB PO SCH ×2 (08:31→21:35)
[2021-02-17] MEDS: Ferrous Sulfate 325 MG TAB PO SCH (08:31)
[2021-02-17] MEDS: Senokot S 8.6-50 MG TAB PO SCH ×2 (08:32→21:35)
[2021-02-17] MEDS: Furosemide 80 MG TAB PO SCH (08:32)
[2021-02-17] MEDS: Cholecalciferol 1,000 UNITS (25 MCG) TAB PO SCH (08:32)
[2021-02-17] MEDS: Digoxin 0.125 MG TAB PO SCH (08:32)
[2021-02-17] MEDS: Trospium 20 MG TAB PO SCH (08:32)
[2021-02-17] MEDS: Benzonatate 100 MG CAP PO SCH ×3 (08:33→21:34)
[2021-02-17] MEDS: Potassium Chloride 20 MEQ TAB PO SCH ×2 (08:33→16:46)
[2021-02-17] MEDS: Mometasone 200 MCG/Formoterol 5 MCG 120 PUFF INHALER INH SCH ×2 (08:38→18:53)
[2021-02-17] MEDS ORDERED: Magnesium 2 GM/50 ML 2 GM in Premix Bag 1 BAG IVPB SCH (09:00)
[2021-02-17] MEDS ORDERED: Bisacodyl 10 MG SUPP PR PRN (10:48)
[2021-02-17] MEDS ORDERED: Polyethylene Glycol 3350 17 GM Packet PO SCH (11:00)
[2021-02-17 11:20] LABS: Phosphorus 2.6 mg/dL (2.3-4.7)
[2021-02-17] MEDS ORDERED: Potassium Chloride 20 MEQ TAB PO SCH (12:00)
[2021-02-17] MEDS ORDERED: Furosemide 40 MG TAB PO SCH (14:00)
[2021-02-17] MEDS: Simethicone Chewable 80 MG TAB PO SCH ×3 (14:52→22:19)
[2021-02-17] MEDS: Warfarin Sodium 5 MG TAB PO SCH (16:46)
[2021-02-17] MEDS ORDERED: Bisacodyl 10 MG SUPP PR SCH (21:00)
[2021-02-17] MEDS: Atorvastatin Calcium 40 MG TAB PO SCH (21:34)
[2021-02-17] MEDS: Pramipexole Di-HCl 0.25 MG TAB PO SCH (21:35)
[2021-02-17] MEDS: Prazosin HCl 1 MG CAP PO SCH (21:35)
[2021-02-17] MEDS: traZODone HCl 50 MG TAB PO SCH (21:35)
[2021-02-17] MEDS: Polyethylene Glycol 3350 17 GM Packet PO SCH (21:36)
[2021-02-18 07:12] LABS: Anion Gap 14 mmol/L (10-20); BUN (Urea Nitrogen) 19 mg/dL (9.8-20.1); Calc. Creatinine Clearance 59 mL/min (70-130); Calcium 8.6 mg/dL (7.8-10.44); Carbon Dioxide 27 mmol/L (23-31); Chloride 102 mmol/L (98-107); Glucose 119 mg/dL (83-110); Magnesium 2.1 mg/dL (1.6-2.6); Phosphorus 2.3 mg/dL (2.3-4.7); Potassium 4.3 mmol/L (3.5-5.1); Sodium 139 mmol/L (136-145)
[2021-02-18 07:16] LABS: #Basophils 0.1 thou/uL (0.0-0.2); #Eosinphils 0.1 thou/uL (0.0-0.7); #Lymphocytes 1.3 thou/uL (1.20-3.40); #Monocytes 0.9 thou/uL (0.11-0.59); #Neutrophils 10.3 thou/uL (1.40-6.50); %Basophils 0.4 % (0.0-1.0); %Eosinophils 1.1 % (0.0-10.0); %Lymphocytes 10.3 % (21.0-51.0); %Monocytes 6.7 % (0.0-10.0); %Neutrophils 81.6 % (42.0-75.0); Hemoglobin 7.7 g/dL (12.0-16.0); Mean Corpuscular HGB CONC 31.9 g/dL (32.0-36.0); Mean Corpuscular Hemoglobin 29.8 pg (27.0-31.0); Mean Corpuscular Volume 93.4 fL (78.0-98.0); Mean Platelet Volume 7.7 fL (7.4-10.4); Platelet Count 338 thou/uL (130-400); RBC Distribution Width 16.6 % (11.5-14.5); White Blood Cell (WBC) Count 12.7 thou/uL (4.8-10.8)
[2021-02-18] MEDS: Mometasone 200 MCG/Formoterol 5 MCG 120 PUFF INHALER INH SCH (07:18)
[2021-02-18 07:22] LABS: INR-International Normal Ratio 3.2; Prothrombin Time 33.2 sec (12.0-14.7)
[2021-02-18] MEDS: Fluticasone Propionate Nasal Spray 16 gm Bottle NASAL PRN (08:48)
[2021-02-18] MEDS: Digoxin 0.125 MG TAB PO SCH (08:50)
[2021-02-18] MEDS: Potassium Chloride 20 MEQ TAB PO SCH (08:50)
[2021-02-18] MEDS: Senokot S 8.6-50 MG TAB PO SCH (08:50)
[2021-02-18] MEDS: Calcium Carbonate 600 MG + Vit D TAB PO SCH (08:50)
[2021-02-18] MEDS: Simethicone Chewable 80 MG TAB PO SCH ×2 (08:50→12:27)
[2021-02-18] MEDS: Benzonatate 100 MG CAP PO SCH ×2 (08:50→15:19)
[2021-02-18] MEDS: Chlorhexidine Gluconate 15 ML UDCUP SSP SCH ×2 (08:51→15:19)
[2021-02-18] MEDS: Ferrous Sulfate 325 MG TAB PO SCH (08:51)
[2021-02-18] MEDS: Furosemide 80 MG TAB PO SCH (08:51)
[2021-02-18] MEDS: Cholecalciferol 1,000 UNITS (25 MCG) TAB PO SCH (08:51)
[2021-02-18] MEDS: Carvedilol 6.25 MG TAB PO SCH (08:51)
[2021-02-18] MEDS: Polyethylene Glycol 3350 17 GM Packet PO SCH (08:52)
[2021-02-18] MEDS ORDERED: Polyethylene Glycol 3350 17 GM Packet PO SCH (09:00)
[2021-02-18 15:31] VITALS: BP 164/61; TEMP 98
== END 2021-02-18 16:59 | disposition home health service (06) | DRG 698 ==
LOC: ERS 10:03 → ERHOLD 11:49 → 2NO 15:55 → T4-B 02-13 17:48
PROVIDERS: ADMIT Internal Medicine; ATTEND Internal Medicine
PROC: 30233N1 Transfusion of Nonautologous Red Blood Cells into Peripheral Vein, Percutaneous Approach (ICD-10-PCS; principal; 2021-02-07)
DX: T83.511A Infection and inflammatory reaction due to indwelling urethral catheter, initial encounter (principal); A41.4 Sepsis due to anaerobes; J18.9 Pneumonia, unspecified organism; R53.2 Functional quadriplegia; N17.9 Acute kidney failure, unspecified; D62 Acute posthemorrhagic anemia; I50.32 Chronic diastolic (congestive) heart failure; J96.11 Chronic respiratory failure with hypoxia; D68.32 Hemorrhagic disorder due to extrinsic circulating anticoagulants; J44.0 Chronic obstructive pulmonary disease with (acute) lower respiratory infection; Z20.822 Contact with and (suspected) exposure to COVID-19; N39.0 Urinary tract infection, site not specified; Y84.6 Urinary catheterization as the cause of abnormal reaction of the patient, or of later complication, without mention of misadventure at the time of the procedure; E66.9 Obesity, unspecified; N18.30 Chronic kidney disease, stage 3 unspecified; R31.0 Gross hematuria; E87.6 Hypokalemia; E83.42 Hypomagnesemia; K80.20 Calculus of gallbladder without cholecystitis without obstruction; D35.01 Benign neoplasm of right adrenal gland; E27.8 Other specified disorders of adrenal gland; I48.0 Paroxysmal atrial fibrillation; R33.9 Retention of urine, unspecified; T45.515A Adverse effect of anticoagulants, initial encounter; R13.12 Dysphagia, oropharyngeal phase; K59.00 Constipation, unspecified; Z88.5 Allergy status to narcotic agent; Z79.899 Other long term (current) drug therapy; Z68.39 Body mass index [BMI] 39.0-39.9, adult; Z79.82 Long term (current) use of aspirin; Z79.51 Long term (current) use of inhaled steroids; Z99.81 Dependence on supplemental oxygen; Z85.53 Personal history of malignant neoplasm of renal pelvis; Z90.5 Acquired absence of kidney; Z95.2 Presence of prosthetic heart valve; Z89.612 Acquired absence of left leg above knee
CPT/HCPCS: 0240U; 36415; 36416; 36430; 36600; 71045; 71250; 74018; 74176; 80048; 80053; 80500; 81003; 81015; 82553; 82805; 83605; 83735; 83880; 84100; 84484; 85014; 85018; 85025; 85049; 85610; 85611; 85730; 85732; 86850; 86900; 86901; 87040; 87077; 87086; 87186; 93005; 94640; 96365; 96367; J0692; J1644; J1940; J2543; J3370; J3430; J3475; J3490; J7620; P9016; S0028

== ENCOUNTER 2021-06-29 11:50 | Inpatient (IN) | payer MEDICARE ==
[2021-06-29 12:52] LABS: #Eosinphils 0.4 thou/uL (0.0-0.7); #Lymphocytes 1.4 thou/uL (1.20-3.40); #Monocytes 0.6 thou/uL (0.11-0.59); #Neutrophils 12.8 thou/uL (1.40-6.50); %Basophils 0.1 % (0.0-1.0); %Eosinophils 2.5 % (0.0-10.0); %Lymphocytes 9.3 % (21.0-51.0); %Monocytes 4.1 % (0.0-10.0); Hemoglobin 11.6 g/dL (12.0-16.0); Mean Corpuscular HGB CONC 33.9 g/dL (32.0-36.0); Mean Corpuscular Hemoglobin 30.2 pg (27.0-31.0); Mean Platelet Volume 8.8 fL (7.4-10.4); Platelet Count 195 thou/uL (130-400); RBC Distribution Width 16.9 % (11.5-14.5); Red Blood Cell (RBC) Count 3.85 mill/uL (4.20-5.40); White Blood Cell (WBC) Count 15.3 thou/uL (4.8-10.8)
[2021-06-29 13:03] LABS: PTT 91.6 sec (22.9-36.1); Prothrombin Time 48.4 sec (12.0-14.7)
[2021-06-29 13:07] LABS: INR-International Normal Ratio 5.2
[2021-06-29 13:13] LABS: ALT (SGPT) 21 U/L (8-55); AST (SGOT) 17 U/L (5-34); Albumin 3.4 g/dL (3.4-4.8); Alkaline Phosphatase 95 U/L (40-110); Anion Gap 15 mmol/L (10-20); BUN (Urea Nitrogen) 47 mg/dL (9.8-20.1); Bilirubin, Total 0.7 mg/dL (0.2-1.2); Calc. Creatinine Clearance 0 mL/min (70-130); Calcium 10.4 mg/dL (7.8-10.44); Carbon Dioxide 29 mmol/L (23-31); Chloride 96 mmol/L (98-107); Globulin 3.1 g/dL (2.4-3.5); Glucose 168 mg/dL (83-110); Potassium 4.2 mmol/L (3.5-5.1); Protein, Total 6.5 g/dL (5.8-8.1); Sodium 136 mmol/L (136-145)
[2021-06-29 15:06] LABS: Digoxin 0.31 ng/mL (0.8-2.0)
[2021-06-29] MEDS ORDERED: Pantoprazole 40 MG VIAL ONE (15:06)
[2021-06-29] MEDS ORDERED: Ondansetron ODT 4 MG TAB PO PRN (15:42)
[2021-06-29] MEDS ORDERED: Ondansetron PF 4 MG/2 ML Vial IVP PRN (15:42)
[2021-06-29] MEDS ORDERED: Benzonatate 100 MG CAP PO PRN (15:46)
[2021-06-29] MEDS ORDERED: Sodium Chloride 0.9% 1,000 ML IV SCH (16:00)
[2021-06-29 16:42] LABS: Iron Binding Capacity, Total 234 mcg/dL (265-497)
[2021-06-29 16:43] LABS: Iron 33 ug/dL (50-170)
[2021-06-29 16:55] VITALS: BMI 31.9
[2021-06-29] MEDS: Acetaminophen 325 MG TAB PO PRN (18:05)
[2021-06-29 18:14] LABS: Hemoglobin 11.3 g/dL (12.0-16.0)
[2021-06-29] MEDS: Mometasone 200 MCG/Formoterol 5 MCG 120 PUFF INHALER INH SCH (19:18)
[2021-06-29] MEDS: Pramipexole Di-HCl 0.25 MG TAB PO SCH (22:05)
[2021-06-29] MEDS: Senokot S 8.6-50 MG TAB PO SCH (22:05)
[2021-06-29] MEDS: Carvedilol 6.25 MG TAB PO SCH (22:06)
[2021-06-29] MEDS: Atorvastatin Calcium 40 MG TAB PO SCH (22:06)
[2021-06-29] MEDS: traZODone HCl 50 MG TAB PO SCH (22:06)
[2021-06-29] MEDS: Pantoprazole 40 MG VIAL IVP SCH (22:07)
[2021-06-29] MEDS: Trospium 20 MG TAB PO SCH (22:10)
[2021-06-30 01:14] LABS: Hemoglobin 10.1 g/dL (12.0-16.0)
[2021-06-30 01:22] LABS: SARS-CoV-2 PCR by NAA Not Detected (NotDetected)
[2021-06-30] MEDS: Levothyroxine 150 MCG TAB PO SCH (05:31)
[2021-06-30 07:20] LABS: #Eosinphils 0.5 thou/uL (0.0-0.7); #Lymphocytes 1.4 thou/uL (1.20-3.40); #Monocytes 0.9 thou/uL (0.11-0.59); %Basophils 0.2 % (0.0-1.0); %Eosinophils 3.8 % (0.0-10.0); %Monocytes 7.9 % (0.0-10.0); %Neutrophils 76.1 % (42.0-75.0); Hemoglobin 9.8 g/dL (12.0-16.0); Mean Corpuscular Hemoglobin 30.3 pg (27.0-31.0); Mean Corpuscular Volume 89.1 fL (78.0-98.0); Mean Platelet Volume 8.8 fL (7.4-10.4); Platelet Count 166 thou/uL (130-400); RBC Distribution Width 16.6 % (11.5-14.5); Red Blood Cell (RBC) Count 3.24 mill/uL (4.20-5.40); White Blood Cell (WBC) Count 11.8 thou/uL (4.8-10.8)
[2021-06-30] MEDS: Mometasone 200 MCG/Formoterol 5 MCG 120 PUFF INHALER INH SCH ×2 (07:30→23:51)
[2021-06-30 07:32] LABS: Prothrombin Time 55.2 sec (12.0-14.7)
[2021-06-30 07:33] LABS: PTT 113.6 sec (22.9-36.1)
[2021-06-30 07:40] LABS: INR-International Normal Ratio 6.2
[2021-06-30 07:43] LABS: ALT (SGPT) 18 U/L (8-55); AST (SGOT) 16 U/L (5-34); Alkaline Phosphatase 77 U/L (40-110); Anion Gap 11 mmol/L (10-20); BUN (Urea Nitrogen) 38 mg/dL (9.8-20.1); Bilirubin, Total 0.7 mg/dL (0.2-1.2); Calc. Creatinine Clearance 35 mL/min (70-130); Calcium 8.7 mg/dL (7.8-10.44); Carbon Dioxide 24 mmol/L (23-31); Chloride 101 mmol/L (98-107); Globulin 2.4 g/dL (2.4-3.5); Glucose 103 mg/dL (83-110); Potassium 3.8 mmol/L (3.5-5.1); Protein, Total 5.4 g/dL (5.8-8.1); Sodium 132 mmol/L (136-145)
[2021-06-30] MEDS ORDERED: Sodium Chloride 0.9% 1,000 ML IV SCH (08:00)
[2021-06-30] MEDS: Polyethylene Glycol 3350 17 GM Packet PO SCH (08:23)
[2021-06-30] MEDS: Senokot S 8.6-50 MG TAB PO SCH ×2 (08:23→21:19)
[2021-06-30] MEDS: Carvedilol 6.25 MG TAB PO SCH ×2 (08:24→21:48)
[2021-06-30] MEDS: Digoxin 0.125 MG TAB PO SCH (08:25)
[2021-06-30] MEDS: Trospium 20 MG TAB PO SCH ×2 (08:34→21:18)
[2021-06-30] MEDS: Pantoprazole 40 MG VIAL IVP SCH ×2 (08:36→21:20)
[2021-06-30] MEDS: Acetaminophen 325 MG TAB PO PRN (10:54)
[2021-06-30] MEDS ORDERED: HYDROcodone/Acetaminophen 5/325 mg Tablet PO PRN ×2 (11:38)
[2021-06-30 12:18] LABS: Hemoglobin 9.6 g/dL (12.0-16.0)
[2021-06-30 20:01] LABS: Hemoglobin 9.5 g/dL (12.0-16.0)
[2021-06-30] MEDS: Pramipexole Di-HCl 0.25 MG TAB PO SCH (21:18)
[2021-06-30] MEDS: traZODone HCl 50 MG TAB PO SCH (21:19)
[2021-06-30] MEDS: Atorvastatin Calcium 40 MG TAB PO SCH (21:19)
[2021-06-30] MEDS: Guaifenesin DM 100-10/5 ML UDCUP PO PRN (21:23)
[2021-07-01] MEDS: Levothyroxine 150 MCG TAB PO SCH (04:09)
[2021-07-01] MEDS: Acetaminophen 325 MG TAB PO PRN (04:09)
[2021-07-01 05:54] LABS: #Eosinphils 0.4 thou/uL (0.0-0.7); #Lymphocytes 0.9 thou/uL (1.20-3.40); #Monocytes 0.8 thou/uL (0.11-0.59); #Neutrophils 8.7 thou/uL (1.40-6.50); %Eosinophils 3.4 % (0.0-10.0); %Lymphocytes 8.2 % (21.0-51.0); %Monocytes 7.4 % (0.0-10.0); %Neutrophils 80.9 % (42.0-75.0); Hemoglobin 8.7 g/dL (12.0-16.0); Mean Corpuscular HGB CONC 33.7 g/dL (32.0-36.0); Mean Corpuscular Hemoglobin 29.9 pg (27.0-31.0); Mean Corpuscular Volume 88.8 fL (78.0-98.0); Mean Platelet Volume 9.1 fL (7.4-10.4); Platelet Count 168 thou/uL (130-400); RBC Distribution Width 16.6 % (11.5-14.5); White Blood Cell (WBC) Count 10.8 thou/uL (4.8-10.8)
[2021-07-01 06:03] LABS: Prothrombin Time 63.4 sec (12.0-14.7)
[2021-07-01 06:05] LABS: INR-International Normal Ratio 7.3
[2021-07-01 06:07] LABS: PTT 136.3 sec (22.9-36.1)
[2021-07-01 06:17] LABS: Anion Gap 11 mmol/L (10-20); BUN (Urea Nitrogen) 31 mg/dL (9.8-20.1); Calc. Creatinine Clearance 36 mL/min (70-130); Calcium 8.4 mg/dL (7.8-10.44); Carbon Dioxide 24 mmol/L (23-31); Chloride 100 mmol/L (98-107); Glucose 123 mg/dL (83-110); Potassium 4.1 mmol/L (3.5-5.1); Sodium 131 mmol/L (136-145)
[2021-07-01] MEDS: Mometasone 200 MCG/Formoterol 5 MCG 120 PUFF INHALER INH SCH ×2 (06:34→19:36)
[2021-07-01] MEDS: Polyethylene Glycol 3350 17 GM Packet PO SCH (09:46)
[2021-07-01] MEDS: Senokot S 8.6-50 MG TAB PO SCH ×2 (09:46→20:41)
[2021-07-01] MEDS: Carvedilol 6.25 MG TAB PO SCH ×2 (09:47→20:42)
[2021-07-01] MEDS: Pantoprazole 40 MG VIAL IVP SCH ×2 (09:47→20:45)
[2021-07-01] MEDS: Digoxin 0.125 MG TAB PO SCH (09:52)
[2021-07-01] MEDS: Trospium 20 MG TAB PO SCH ×2 (11:59→20:43)
[2021-07-01] MEDS: Guaifenesin DM 100-10/5 ML UDCUP PO PRN ×2 (12:00→16:42)
[2021-07-01] MEDS: HYDROcodone/Acetaminophen 5/325 mg Tablet PO PRN (16:20)
[2021-07-01] MEDS: Benzonatate 100 MG CAP PO PRN ×2 (16:45→21:00)
[2021-07-01] MEDS ORDERED: Phytonadione 5 MG TAB PO SCH (18:00)
[2021-07-01] MEDS ORDERED: Furosemide 40 MG/4 ML VIAL SLOW IVP SCH (18:00)
[2021-07-01] MEDS: Atorvastatin Calcium 40 MG TAB PO SCH (20:41)
[2021-07-01] MEDS: traZODone HCl 50 MG TAB PO SCH (20:42)
[2021-07-01] MEDS: Pramipexole Di-HCl 0.25 MG TAB PO SCH (20:42)
[2021-07-02] MEDS: Guaifenesin DM 100-10/5 ML UDCUP PO PRN (00:07)
[2021-07-02 03:18] LABS: #Eosinphils 0.1 thou/uL (0.0-0.7); #Lymphocytes 0.8 thou/uL (1.20-3.40); #Monocytes 0.7 thou/uL (0.11-0.59); #Neutrophils 4.2 thou/uL (1.40-6.50); %Basophils 0.1 % (0.0-1.0); %Eosinophils 2.5 % (0.0-10.0); %Lymphocytes 13.9 % (21.0-51.0); %Neutrophils 71.5 % (42.0-75.0); Hemoglobin 9.3 g/dL (12.0-16.0); Mean Corpuscular HGB CONC 34.8 g/dL (32.0-36.0); Mean Corpuscular Hemoglobin 30.9 pg (27.0-31.0); Mean Corpuscular Volume 88.7 fL (78.0-98.0); Platelet Count 164 thou/uL (130-400); RBC Distribution Width 16.4 % (11.5-14.5); Red Blood Cell (RBC) Count 3.02 mill/uL (4.20-5.40); White Blood Cell (WBC) Count 5.8 thou/uL (4.8-10.8)
[2021-07-02 03:29] LABS: Prothrombin Time 42.8 sec (12.0-14.7)
[2021-07-02 03:34] LABS: INR-International Normal Ratio 4.5
[2021-07-02 03:42] LABS: Anion Gap 13 mmol/L (10-20); BUN (Urea Nitrogen) 26 mg/dL (9.8-20.1); Calc. Creatinine Clearance 31 mL/min (70-130); Calcium 8.8 mg/dL (7.8-10.44); Carbon Dioxide 23 mmol/L (23-31); Chloride 100 mmol/L (98-107); Glucose 119 mg/dL (83-110); Sodium 132 mmol/L (136-145)
[2021-07-02] MEDS: Levothyroxine 150 MCG TAB PO SCH (06:01)
[2021-07-02] MEDS: Mometasone 200 MCG/Formoterol 5 MCG 120 PUFF INHALER INH SCH ×2 (07:33→19:22)
[2021-07-02] MEDS: Carvedilol 6.25 MG TAB PO SCH ×2 (09:48→21:19)
[2021-07-02] MEDS: Polyethylene Glycol 3350 17 GM Packet PO SCH (09:50)
[2021-07-02] MEDS: Digoxin 0.125 MG TAB PO SCH (09:50)
[2021-07-02] MEDS: Senokot S 8.6-50 MG TAB PO SCH ×2 (09:50→21:17)
[2021-07-02] MEDS: Pantoprazole 40 MG VIAL IVP SCH (09:51)
[2021-07-02] MEDS: Trospium 20 MG TAB PO SCH ×2 (09:51→21:18)
[2021-07-02] MEDS: guaiFENesin/Codeine 200 mg/20 mg 10 ml Cup PO PRN ×2 (10:05→19:40)
[2021-07-02] MEDS: Acetaminophen 325 MG TAB PO PRN (12:17)
[2021-07-02] MEDS: Pramipexole Di-HCl 0.25 MG TAB PO SCH (21:17)
[2021-07-02] MEDS: traZODone HCl 50 MG TAB PO SCH (21:17)
[2021-07-02] MEDS: Atorvastatin Calcium 40 MG TAB PO SCH (21:18)
[2021-07-03] MEDS: Benzonatate 100 MG CAP PO PRN ×2 (04:03→20:35)
[2021-07-03] MEDS: Acetaminophen 325 MG TAB PO PRN ×2 (04:03→20:33)
[2021-07-03] MEDS: Levothyroxine 150 MCG TAB PO SCH (05:43)
[2021-07-03] MEDS: HYDROcodone/Acetaminophen 5/325 mg Tablet PO PRN ×2 (05:45→20:41)
[2021-07-03] MEDS: Mometasone 200 MCG/Formoterol 5 MCG 120 PUFF INHALER INH SCH ×2 (07:31→18:52)
[2021-07-03 08:03] LABS: #Eosinphils 0.2 thou/uL (0.0-0.7); #Lymphocytes 1.1 thou/uL (1.20-3.40); #Monocytes 0.8 thou/uL (0.11-0.59); #Neutrophils 3.8 thou/uL (1.40-6.50); %Basophils 0.2 % (0.0-1.0); %Eosinophils 2.9 % (0.0-10.0); %Lymphocytes 18.3 % (21.0-51.0); %Monocytes 13.6 % (0.0-10.0); Hemoglobin 8.2 g/dL (12.0-16.0); Mean Corpuscular HGB CONC 34.2 g/dL (32.0-36.0); Mean Corpuscular Hemoglobin 30.1 pg (27.0-31.0); Mean Corpuscular Volume 88.2 fL (78.0-98.0); Mean Platelet Volume 8.7 fL (7.4-10.4); Platelet Count 174 thou/uL (130-400); RBC Distribution Width 16.5 % (11.5-14.5); Red Blood Cell (RBC) Count 2.71 mill/uL (4.20-5.40); White Blood Cell (WBC) Count 5.9 thou/uL (4.8-10.8)
[2021-07-03 08:27] LABS: Anion Gap 14 mmol/L (10-20); BUN (Urea Nitrogen) 27 mg/dL (9.8-20.1); Calc. Creatinine Clearance 32 mL/min (70-130); Calcium 8.4 mg/dL (7.8-10.44); Carbon Dioxide 21 mmol/L (23-31); Chloride 97 mmol/L (98-107); Glucose 124 mg/dL (83-110); Potassium 4.1 mmol/L (3.5-5.1); Sodium 128 mmol/L (136-145)
[2021-07-03 08:44] LABS: INR-International Normal Ratio 1.4; Prothrombin Time 17.4 sec (12.0-14.7)
[2021-07-03] MEDS: Senokot S 8.6-50 MG TAB PO SCH ×2 (09:07→20:33)
[2021-07-03] MEDS: Polyethylene Glycol 3350 17 GM Packet PO SCH (09:07)
[2021-07-03] MEDS: Digoxin 0.125 MG TAB PO SCH (09:07)
[2021-07-03] MEDS: Carvedilol 6.25 MG TAB PO SCH ×2 (09:09→20:38)
[2021-07-03] MEDS: Trospium 20 MG TAB PO SCH ×2 (09:12→20:33)
[2021-07-03] MEDS: cefTRIAXone\\ROCEPHIN 1 GM in Sodium Chloride 0.9% 100 ML IVPB SCH (16:45)
[2021-07-03] MEDS ORDERED: Furosemide 40 MG/4 ML VIAL SLOW IVP SCH (20:30)
[2021-07-03] MEDS: Atorvastatin Calcium 40 MG TAB PO SCH (20:33)
[2021-07-03] MEDS: Pramipexole Di-HCl 0.25 MG TAB PO SCH (20:33)
[2021-07-03] MEDS: traZODone HCl 50 MG TAB PO SCH (22:15)
[2021-07-03] MEDS: Enoxaparin Sodium 80 MG/0.8 ML SYRINGE SC SCH (22:15)
[2021-07-04 01:09] LABS: Bacteria/HPF 4+ HPF (None Seen); Bilirubin Negative (Negative); Blood, Urine 1+ (Negative); Clarity Extra Turbid (Clear); Glucose, Urine (Dipstick) Normal (Negative); Ketone, Urine Negative (Negative); Leukocyte 500 Leu/uL (Negative); Nitrite Negative (Negative); Protein, Urine (Dipstick) 30 mg/dL (Neg-Trace); RBC/HPF Greater than 50 HPF (0-3); Specific Gravity, Urine 1.008 (1.002-1.036); Squamous Epithelial None Seen HPF (0-3); Urobilinogen Normal mg/dL (Less than 2); WBC/HPF Greater than 50 HPF (0-3)
[2021-07-04 01:36] LABS: Urine Culture Reflex Yes Yes
[2021-07-04] MEDS: HYDROcodone/Acetaminophen 5/325 mg Tablet PO PRN ×2 (05:08→20:50)
[2021-07-04] MEDS: Levothyroxine 150 MCG TAB PO SCH (05:08)
[2021-07-04 07:24] LABS: INR-International Normal Ratio 1.2; Prothrombin Time 15.2 sec (12.0-14.7)
[2021-07-04 07:25] LABS: #Eosinphils 0.2 thou/uL (0.0-0.7); #Lymphocytes 1.3 thou/uL (1.20-3.40); #Monocytes 0.6 thou/uL (0.11-0.59); #Neutrophils 3.2 thou/uL (1.40-6.50); %Basophils 0.2 % (0.0-1.0); %Eosinophils 3.6 % (0.0-10.0); %Lymphocytes 24.8 % (21.0-51.0); %Monocytes 11.6 % (0.0-10.0); %Neutrophils 59.8 % (42.0-75.0); Hemoglobin 8.4 g/dL (12.0-16.0); Mean Corpuscular HGB CONC 33.5 g/dL (32.0-36.0); Mean Corpuscular Hemoglobin 29.7 pg (27.0-31.0); Mean Corpuscular Volume 88.7 fL (78.0-98.0); Platelet Count 171 thou/uL (130-400); RBC Distribution Width 16.5 % (11.5-14.5); Red Blood Cell (RBC) Count 2.84 mill/uL (4.20-5.40); White Blood Cell (WBC) Count 5.3 thou/uL (4.8-10.8)
[2021-07-04] MEDS: Mometasone 200 MCG/Formoterol 5 MCG 120 PUFF INHALER INH SCH ×2 (07:30→18:37)
[2021-07-04] MEDS: Carvedilol 6.25 MG TAB PO SCH ×2 (09:07→20:48)
[2021-07-04] MEDS: Senokot S 8.6-50 MG TAB PO SCH ×2 (09:08→20:47)
[2021-07-04] MEDS: Trospium 20 MG TAB PO SCH ×2 (09:08→20:47)
[2021-07-04] MEDS: Digoxin 0.125 MG TAB PO SCH (09:08)
[2021-07-04] MEDS: Polyethylene Glycol 3350 17 GM Packet PO SCH (09:18)
[2021-07-04] MEDS ORDERED: Warfarin Sodium 5 MG TAB PO SCH (10:45)
[2021-07-04] MEDS: Benzonatate 100 MG CAP PO PRN ×2 (11:19→20:48)
[2021-07-04] MEDS: Fluticasone Propionate Nasal Spray 16 gm Bottle NASAL PRN (12:43)
[2021-07-04] MEDS: cefTRIAXone\\ROCEPHIN 1 GM in Sodium Chloride 0.9% 100 ML IVPB SCH (14:45)
[2021-07-04] MEDS: Enoxaparin Sodium 80 MG/0.8 ML SYRINGE SC SCH (20:47)
[2021-07-04] MEDS: Pramipexole Di-HCl 0.25 MG TAB PO SCH (20:47)
[2021-07-04] MEDS: Atorvastatin Calcium 40 MG TAB PO SCH (20:47)
[2021-07-04] MEDS: traZODone HCl 50 MG TAB PO SCH (22:06)
[2021-07-05 06:13] LABS: Hemoglobin 8.2 g/dL (12.0-16.0); Mean Corpuscular HGB CONC 33.9 g/dL (32.0-36.0); Mean Corpuscular Hemoglobin 29.7 pg (27.0-31.0); Mean Corpuscular Volume 87.5 fL (78.0-98.0); Mean Platelet Volume 8.6 fL (7.4-10.4); Platelet Count 181 thou/uL (130-400); RBC Distribution Width 16.4 % (11.5-14.5); Red Blood Cell (RBC) Count 2.78 mill/uL (4.20-5.40); White Blood Cell (WBC) Count 6.4 thou/uL (4.8-10.8)
[2021-07-05] MEDS: Levothyroxine 150 MCG TAB PO SCH (06:13)
[2021-07-05] MEDS: Benzonatate 100 MG CAP PO PRN ×3 (06:15→22:39)
[2021-07-05 06:19] LABS: INR-International Normal Ratio 1.3; Prothrombin Time 16.2 sec (12.0-14.7)
[2021-07-05 06:20] LABS: PTT 73.8 sec (22.9-36.1)
[2021-07-05 06:28] LABS: ALT (SGPT) 24 U/L (8-55); AST (SGOT) 27 U/L (5-34); Albumin 2.9 g/dL (3.4-4.8); Alkaline Phosphatase 90 U/L (40-110); Anion Gap 11 mmol/L (10-20); BUN (Urea Nitrogen) 29 mg/dL (9.8-20.1); Bilirubin, Total 0.4 mg/dL (0.2-1.2); Calc. Creatinine Clearance 31 mL/min (70-130); Calcium 8.1 mg/dL (7.8-10.44); Carbon Dioxide 25 mmol/L (23-31); Chloride 94 mmol/L (98-107); Globulin 2.5 g/dL (2.4-3.5); Glucose 98 mg/dL (83-110); Potassium 3.9 mmol/L (3.5-5.1); Protein, Total 5.4 g/dL (5.8-8.1); Sodium 126 mmol/L (136-145)
[2021-07-05] MEDS: Mometasone 200 MCG/Formoterol 5 MCG 120 PUFF INHALER INH SCH ×2 (07:20→18:50)
[2021-07-05 09:16] LABS: Band 33 % (5-11); Burr Cells SLIGHT = 2-5 cells (100X) (0-1/hpf); Eosinophils 2 % (0-10); Lymphocytes 19 % (21-51); MDiff Complete? YES; Metamyelocyte 1 % (0-0); Monocytes 6 % (0-10); Myelocyte 2 % (0-0); Neutrophil 37 % (42-75); Ovalocytes SLIGHT = 2-5 cells (100X) (0-1/hpf); Platelet Morphology Comment Appears Adequate; Polychromasia SLIGHT = 2-3 cells (100X) (0-2/hpf)
[2021-07-05] MEDS: Fluticasone Propionate Nasal Spray 16 gm Bottle NASAL PRN (09:29)
[2021-07-05] MEDS: Trospium 20 MG TAB PO SCH ×2 (09:30→21:53)
[2021-07-05] MEDS: Digoxin 0.125 MG TAB PO SCH (09:30)
[2021-07-05] MEDS: Carvedilol 6.25 MG TAB PO SCH ×2 (09:32→21:53)
[2021-07-05] MEDS: Senokot S 8.6-50 MG TAB PO SCH ×2 (09:32→21:54)
[2021-07-05] MEDS: Polyethylene Glycol 3350 17 GM Packet PO SCH (09:33)
[2021-07-05 12:05] LABS: INR-International Normal Ratio 1.2; Prothrombin Time 15.7 sec (12.0-14.7)
[2021-07-05] MEDS: HYDROcodone/Acetaminophen 5/325 mg Tablet PO PRN (14:02)
[2021-07-05] MEDS: cefTRIAXone\\ROCEPHIN 1 GM in Sodium Chloride 0.9% 100 ML IVPB SCH (14:04)
[2021-07-05] MEDS ORDERED: Furosemide 40 MG/4 ML VIAL SLOW IVP SCH (16:30)
[2021-07-05] MEDS: Warfarin Sodium 2.5 MG TAB PO SCH (17:08)
[2021-07-05] MEDS: Atorvastatin Calcium 40 MG TAB PO SCH (21:53)
[2021-07-05] MEDS: traZODone HCl 50 MG TAB PO SCH (21:54)
[2021-07-05] MEDS: Pramipexole Di-HCl 0.25 MG TAB PO SCH (21:54)
[2021-07-05] MEDS: Enoxaparin Sodium 80 MG/0.8 ML SYRINGE SC SCH (23:22)
[2021-07-06] MEDS: Levothyroxine 150 MCG TAB PO SCH (05:10)
[2021-07-06 06:00] LABS: #Eosinphils 0.3 thou/uL (0.0-0.7); #Monocytes 0.5 thou/uL (0.11-0.59); #Neutrophils 3.7 thou/uL (1.40-6.50); %Basophils 0.2 % (0.0-1.0); %Eosinophils 4.8 % (0.0-10.0); %Lymphocytes 18.4 % (21.0-51.0); %Monocytes 9.7 % (0.0-10.0); %Neutrophils 66.9 % (42.0-75.0); Hemoglobin 8.5 g/dL (12.0-16.0); Mean Corpuscular HGB CONC 34.6 g/dL (32.0-36.0); Mean Corpuscular Hemoglobin 30.3 pg (27.0-31.0); Mean Corpuscular Volume 87.5 fL (78.0-98.0); Mean Platelet Volume 8.2 fL (7.4-10.4); Platelet Count 161 thou/uL (130-400); RBC Distribution Width 16.5 % (11.5-14.5); Red Blood Cell (RBC) Count 2.82 mill/uL (4.20-5.40); White Blood Cell (WBC) Count 5.6 thou/uL (4.8-10.8)
[2021-07-06 06:25] LABS: ALT (SGPT) 22 U/L (8-55); AST (SGOT) 30 U/L (5-34); Albumin 2.9 g/dL (3.4-4.8); Alkaline Phosphatase 95 U/L (40-110); Anion Gap 15 mmol/L (10-20); BUN (Urea Nitrogen) 25 mg/dL (9.8-20.1); Bilirubin, Total 0.3 mg/dL (0.2-1.2); Calc. Creatinine Clearance 34 mL/min (70-130); Carbon Dioxide 19 mmol/L (23-31); Chloride 97 mmol/L (98-107); Globulin 2.6 g/dL (2.4-3.5); Glucose 112 mg/dL (83-110); Protein, Total 5.5 g/dL (5.8-8.1); Sodium 127 mmol/L (136-145)
[2021-07-06] MEDS: Mometasone 200 MCG/Formoterol 5 MCG 120 PUFF INHALER INH SCH ×2 (06:45→19:06)
[2021-07-06] MEDS: Carvedilol 6.25 MG TAB PO SCH ×2 (09:17→21:04)
[2021-07-06 09:24] LABS: INR-International Normal Ratio 1.6; Prothrombin Time 18.7 sec (12.0-14.7)
[2021-07-06 09:25] LABS: PTT 91.1 sec (22.9-36.1)
[2021-07-06] MEDS: Senokot S 8.6-50 MG TAB PO SCH ×2 (09:39→21:04)
[2021-07-06] MEDS: Trospium 20 MG TAB PO SCH ×2 (09:39→21:03)
[2021-07-06] MEDS: Polyethylene Glycol 3350 17 GM Packet PO SCH (09:39)
[2021-07-06] MEDS: Digoxin 0.125 MG TAB PO SCH (09:39)
[2021-07-06] MEDS ORDERED: Furosemide 40 MG/4 ML VIAL SLOW IVP SCH (13:45)
[2021-07-06] MEDS: cefTRIAXone\\ROCEPHIN 1 GM in Sodium Chloride 0.9% 100 ML IVPB SCH (14:45)
[2021-07-06] MEDS: Warfarin Sodium 1 MG TAB PO SCH (18:32)
[2021-07-06] MEDS: Warfarin Sodium 2.5 MG TAB PO SCH (18:32)
[2021-07-06] MEDS: Pramipexole Di-HCl 0.25 MG TAB PO SCH (21:03)
[2021-07-06] MEDS: traZODone HCl 50 MG TAB PO SCH (21:04)
[2021-07-06] MEDS: Atorvastatin Calcium 40 MG TAB PO SCH (21:04)
[2021-07-06] MEDS: Enoxaparin Sodium 80 MG/0.8 ML SYRINGE SC SCH (23:57)
[2021-07-07] MEDS: Levothyroxine 150 MCG TAB PO SCH (05:35)
[2021-07-07 07:43] LABS: ALT (SGPT) 26 U/L (8-55); AST (SGOT) 36 U/L (5-34); Albumin 2.9 g/dL (3.4-4.8); Alkaline Phosphatase 93 U/L (40-110); Anion Gap 12 mmol/L (10-20); BUN (Urea Nitrogen) 25 mg/dL (9.8-20.1); Bilirubin, Total 0.4 mg/dL (0.2-1.2); Calc. Creatinine Clearance 33 mL/min (70-130); Calcium 8.2 mg/dL (7.8-10.44); Carbon Dioxide 25 mmol/L (23-31); Chloride 95 mmol/L (98-107); Globulin 2.5 g/dL (2.4-3.5); Glucose 108 mg/dL (83-110); Potassium 3.5 mmol/L (3.5-5.1); Protein, Total 5.4 g/dL (5.8-8.1); Sodium 128 mmol/L (136-145)
[2021-07-07] MEDS: Mometasone 200 MCG/Formoterol 5 MCG 120 PUFF INHALER INH SCH (08:02)
[2021-07-07 08:08] LABS: INR-International Normal Ratio 1.7; Prothrombin Time 20.4 sec (12.0-14.7)
[2021-07-07 08:09] LABS: PTT 73.4 sec (22.9-36.1)
[2021-07-07] MEDS: Digoxin 0.125 MG TAB PO SCH (08:27)
[2021-07-07] MEDS: Senokot S 8.6-50 MG TAB PO SCH ×2 (08:27→22:31)
[2021-07-07] MEDS: Polyethylene Glycol 3350 17 GM Packet PO SCH (08:27)
[2021-07-07] MEDS: HYDROcodone/Acetaminophen 5/325 mg Tablet PO PRN (08:44)
[2021-07-07] MEDS: Carvedilol 6.25 MG TAB PO SCH ×2 (08:46→22:32)
[2021-07-07] MEDS: Trospium 20 MG TAB PO SCH ×2 (09:55→22:32)
[2021-07-07 10:18] LABS: Band 49 % (5-11); Hemoglobin 8.3 g/dL (12.0-16.0); Lymphocytes 11 % (21-51); MDiff Complete? YES; Mean Corpuscular HGB CONC 33.5 g/dL (32.0-36.0); Mean Corpuscular Hemoglobin 29.5 pg (27.0-31.0); Mean Corpuscular Volume 88.2 fL (78.0-98.0); Mean Platelet Volume 8.5 fL (7.4-10.4); Metamyelocyte 2 % (0-0); Monocytes 10 % (0-10); Myelocyte 3 % (0-0); Neutrophil 20 % (42-75); Platelet Count 185 thou/uL (130-400); RBC Distribution Width 16.5 % (11.5-14.5); Reactive Lymphocytes 5 % (0-10); Red Blood Cell (RBC) Count 2.82 mill/uL (4.20-5.40); White Blood Cell (WBC) Count 4.7 thou/uL (4.8-10.8)
[2021-07-07] MEDS: Benzonatate 100 MG CAP PO PRN ×2 (10:42→18:44)
[2021-07-07] MEDS ORDERED: Furosemide 40 MG TAB PO SCH (13:00)
[2021-07-07] MEDS ORDERED: Piperacillin/Tazobactam 3.375 GM in Sodium Chloride 0.9% 100 ML IVPB SCH ×4 (13:30→20:00)
[2021-07-07] MEDS: Warfarin Sodium 1 MG TAB PO SCH (18:26)
[2021-07-07] MEDS: Warfarin Sodium 2.5 MG TAB PO SCH (18:26)
[2021-07-07 18:45] LABS: SARS-CoV-2 PCR by NAA DETECTED (NotDetected)
[2021-07-07] MEDS: Atorvastatin Calcium 40 MG TAB PO SCH (22:33)
[2021-07-07] MEDS: traZODone HCl 50 MG TAB PO SCH (22:33)
[2021-07-07] MEDS: Enoxaparin Sodium 80 MG/0.8 ML SYRINGE SC SCH (23:14)
[2021-07-07] MEDS: Pramipexole Di-HCl 0.25 MG TAB PO SCH (23:52)
[2021-07-08] MEDS: Mometasone 200 MCG/Formoterol 5 MCG 120 PUFF INHALER INH SCH ×3 (00:10→17:56)
[2021-07-08] MEDS: Levothyroxine 150 MCG TAB PO SCH (06:10)
[2021-07-08 06:53] LABS: INR-International Normal Ratio 2.1; Prothrombin Time 23.8 sec (12.0-14.7)
[2021-07-08 07:01] LABS: Calc. Creatinine Clearance 37 mL/min (70-130)
[2021-07-08] MEDS: Carvedilol 6.25 MG TAB PO SCH ×3 (07:44→20:10)
[2021-07-08] MEDS: Polyethylene Glycol 3350 17 GM Packet PO SCH (07:44)
[2021-07-08] MEDS: Furosemide 40 MG TAB PO SCH (07:44)
[2021-07-08] MEDS: Digoxin 0.125 MG TAB PO SCH (07:44)
[2021-07-08] MEDS: Senokot S 8.6-50 MG TAB PO SCH ×2 (07:45→20:08)
[2021-07-08] MEDS: Trospium 20 MG TAB PO SCH ×2 (07:46→20:08)
[2021-07-08] MEDS ORDERED: Dexamethasone 10 MG in Sodium Chloride 0.9% 50 ML IVPB SCH (14:00)
[2021-07-08] MEDS ORDERED: Dexamethasone 10 MG/ML VIAL SLOW IVP SCH (14:00)
[2021-07-08 14:05] LABS: Sodium 131 mmol/L (136-145)
[2021-07-08] MEDS: HYDROcodone/Acetaminophen 5/325 mg Tablet PO PRN (14:14)
[2021-07-08] MEDS: Warfarin Sodium 2.5 MG TAB PO SCH (16:27)
[2021-07-08] MEDS: Warfarin Sodium 1 MG TAB PO SCH (16:28)
[2021-07-08] MEDS: Pramipexole Di-HCl 0.25 MG TAB PO SCH (20:08)
[2021-07-08] MEDS: traZODone HCl 50 MG TAB PO SCH (20:09)
[2021-07-08] MEDS: Atorvastatin Calcium 40 MG TAB PO SCH (20:09)
[2021-07-08] MEDS: Enoxaparin Sodium 80 MG/0.8 ML SYRINGE SC SCH (20:10)
[2021-07-09] MEDS: Levothyroxine 150 MCG TAB PO SCH (05:52)
[2021-07-09] MEDS: Furosemide 40 MG TAB PO SCH (05:52)
[2021-07-09] MEDS: Mometasone 200 MCG/Formoterol 5 MCG 120 PUFF INHALER INH SCH ×2 (06:15→17:06)
[2021-07-09] MEDS: Acetaminophen 325 MG TAB PO PRN (08:23)
[2021-07-09] MEDS: Digoxin 0.125 MG TAB PO SCH (08:23)
[2021-07-09] MEDS: Senokot S 8.6-50 MG TAB PO SCH ×2 (08:23→20:15)
[2021-07-09] MEDS: Dexamethasone 4 MG TAB PO SCH (08:23)
[2021-07-09] MEDS: Trospium 20 MG TAB PO SCH ×2 (08:23→20:15)
[2021-07-09] MEDS: Carvedilol 6.25 MG TAB PO SCH ×2 (08:24→20:15)
[2021-07-09] MEDS: Polyethylene Glycol 3350 17 GM Packet PO SCH (08:24)
[2021-07-09 13:24] LABS: INR-International Normal Ratio 3.3; Prothrombin Time 33.4 sec (12.0-14.7)
[2021-07-09] MEDS: HYDROcodone/Acetaminophen 5/325 mg Tablet PO PRN (13:40)
[2021-07-09] MEDS: Benzonatate 100 MG CAP PO PRN ×2 (13:41→20:28)
[2021-07-09] MEDS: Warfarin Sodium 2.5 MG TAB PO SCH (17:06)
[2021-07-09] MEDS ORDERED: guaiFENesin/Codeine 200 mg/20 mg 10 ml Cup PO PRN (18:49)
[2021-07-09] MEDS: traZODone HCl 50 MG TAB PO SCH (20:16)
[2021-07-09] MEDS: Pramipexole Di-HCl 0.25 MG TAB PO SCH (20:16)
[2021-07-09] MEDS: Atorvastatin Calcium 40 MG TAB PO SCH (20:16)
[2021-07-10] MEDS: Levothyroxine 150 MCG TAB PO SCH (05:03)
[2021-07-10] MEDS: GUAIFENESIN SF SOLN 200 MG/10 ML UDCUP PO PRN ×2 (05:03→20:53)
[2021-07-10] MEDS: Benzonatate 100 MG CAP PO PRN ×3 (05:03→20:51)
[2021-07-10] MEDS: Mometasone 200 MCG/Formoterol 5 MCG 120 PUFF INHALER INH SCH ×2 (05:38→18:50)
[2021-07-10 07:37] LABS: INR-International Normal Ratio 3.8
[2021-07-10] MEDS: Trospium 20 MG TAB PO SCH ×2 (08:39→20:51)
[2021-07-10] MEDS: Carvedilol 6.25 MG TAB PO SCH ×2 (08:40→20:51)
[2021-07-10] MEDS: Furosemide 40 MG TAB PO SCH (08:40)
[2021-07-10] MEDS: Digoxin 0.125 MG TAB PO SCH (08:41)
[2021-07-10] MEDS: Senokot S 8.6-50 MG TAB PO SCH ×2 (08:42→20:53)
[2021-07-10] MEDS: Dexamethasone 4 MG TAB PO SCH (08:42)
[2021-07-10] MEDS: Polyethylene Glycol 3350 17 GM Packet PO SCH (08:42)
[2021-07-10] MEDS: HYDROcodone/Acetaminophen 5/325 mg Tablet PO PRN ×2 (10:17→20:53)
[2021-07-10] MEDS: traZODone HCl 50 MG TAB PO SCH (20:51)
[2021-07-10] MEDS: Atorvastatin Calcium 40 MG TAB PO SCH (20:52)
[2021-07-10] MEDS: Pramipexole Di-HCl 0.25 MG TAB PO SCH (20:57)
[2021-07-11] MEDS: HYDROcodone/Acetaminophen 5/325 mg Tablet PO PRN ×3 (00:44→20:29)
[2021-07-11] MEDS: GUAIFENESIN SF SOLN 200 MG/10 ML UDCUP PO PRN ×3 (03:25→20:28)
[2021-07-11] MEDS: Acetaminophen 325 MG TAB PO PRN (03:25)
[2021-07-11] MEDS: Benzonatate 100 MG CAP PO PRN ×3 (03:25→20:29)
[2021-07-11] MEDS: Mometasone 200 MCG/Formoterol 5 MCG 120 PUFF INHALER INH SCH ×2 (06:18→19:00)
[2021-07-11] MEDS: Levothyroxine 150 MCG TAB PO SCH (06:18)
[2021-07-11] MEDS: Trospium 20 MG TAB PO SCH ×2 (08:35→20:28)
[2021-07-11] MEDS: Carvedilol 6.25 MG TAB PO SCH ×2 (08:35→20:28)
[2021-07-11] MEDS: Polyethylene Glycol 3350 17 GM Packet PO SCH (08:35)
[2021-07-11] MEDS: Senokot S 8.6-50 MG TAB PO SCH ×2 (08:35→20:32)
[2021-07-11] MEDS: Dexamethasone 4 MG TAB PO SCH (08:35)
[2021-07-11] MEDS: Digoxin 0.125 MG TAB PO SCH (08:35)
[2021-07-11] MEDS: Furosemide 40 MG TAB PO SCH (08:36)
[2021-07-11 13:09] LABS: Prothrombin Time 57.7 sec (12.0-14.7)
[2021-07-11 13:13] LABS: INR-International Normal Ratio 6.5
[2021-07-11 13:14] LABS: Anion Gap 12 mmol/L (10-20); BUN (Urea Nitrogen) 31 mg/dL (9.8-20.1); Calc. Creatinine Clearance 37 mL/min (70-130); Calcium 8.2 mg/dL (7.8-10.44); Carbon Dioxide 28 mmol/L (23-31); Chloride 97 mmol/L (98-107); Glucose 105 mg/dL (83-110); Potassium 4.2 mmol/L (3.5-5.1); Sodium 133 mmol/L (136-145)
[2021-07-11] MEDS: Pramipexole Di-HCl 0.25 MG TAB PO SCH (20:28)
[2021-07-11] MEDS: Atorvastatin Calcium 40 MG TAB PO SCH (20:29)
[2021-07-11] MEDS: traZODone HCl 50 MG TAB PO SCH (20:35)
[2021-07-12] MEDS: Fluticasone Propionate Nasal Spray 16 gm Bottle NASAL PRN ×2 (01:33→22:04)
[2021-07-12] MEDS: Benzonatate 100 MG CAP PO PRN (01:37)
[2021-07-12] MEDS: HYDROcodone/Acetaminophen 5/325 mg Tablet PO PRN ×4 (01:37→21:50)
[2021-07-12] MEDS: GUAIFENESIN SF SOLN 200 MG/10 ML UDCUP PO PRN ×3 (01:37→21:50)
[2021-07-12] MEDS: Levothyroxine 150 MCG TAB PO SCH (05:06)
[2021-07-12] MEDS: Mometasone 200 MCG/Formoterol 5 MCG 120 PUFF INHALER INH SCH ×2 (05:07→17:38)
[2021-07-12] MEDS: Trospium 20 MG TAB PO SCH ×2 (08:57→21:51)
[2021-07-12] MEDS: Dexamethasone 4 MG TAB PO SCH (09:00)
[2021-07-12] MEDS: Polyethylene Glycol 3350 17 GM Packet PO SCH (09:00)
[2021-07-12] MEDS: Furosemide 40 MG TAB PO SCH (09:00)
[2021-07-12] MEDS: Acetaminophen 325 MG TAB PO PRN (09:00)
[2021-07-12] MEDS: Senokot S 8.6-50 MG TAB PO SCH ×2 (09:01→21:55)
[2021-07-12] MEDS: Digoxin 0.125 MG TAB PO SCH (10:54)
[2021-07-12] MEDS: Carvedilol 6.25 MG TAB PO SCH ×2 (10:54→21:51)
[2021-07-12 11:14] LABS: Prothrombin Time 71.6 sec (12.0-14.7)
[2021-07-12 11:17] LABS: INR-International Normal Ratio 8.6
[2021-07-12] MEDS ORDERED: Phytonadione 5 MG TAB PO SCH (11:45)
[2021-07-12] MEDS ORDERED: Phytonadione 10 MG/ML AMP PO SCH (11:45)
[2021-07-12] MEDS ORDERED: Nystatin 500,000 UNITS/5 ML UDCUP SSW SCH (13:15)
[2021-07-12] MEDS: Nystatin 500,000 UNITS/5 ML UDCUP SSW SCH ×2 (17:38→21:50)
[2021-07-12] MEDS: hydrOXYzine 10 MG TAB PO PRN (21:49)
[2021-07-12] MEDS: Pramipexole Di-HCl 0.25 MG TAB PO SCH (21:50)
[2021-07-12] MEDS: traZODone HCl 50 MG TAB PO SCH (21:51)
[2021-07-12] MEDS: Atorvastatin Calcium 40 MG TAB PO SCH (21:51)
[2021-07-13] MEDS: Levothyroxine 150 MCG TAB PO SCH (05:35)
[2021-07-13] MEDS: Mometasone 200 MCG/Formoterol 5 MCG 120 PUFF INHALER INH SCH ×2 (05:35→16:42)
[2021-07-13 07:00] LABS: Prothrombin Time 47.5 sec (12.0-14.7)
[2021-07-13 07:27] LABS: INR-International Normal Ratio 5.1
[2021-07-13] MEDS: Senokot S 8.6-50 MG TAB PO SCH ×2 (09:25→21:06)
[2021-07-13] MEDS: Carvedilol 6.25 MG TAB PO SCH ×2 (09:25→21:06)
[2021-07-13] MEDS: Polyethylene Glycol 3350 17 GM Packet PO SCH (09:25)
[2021-07-13] MEDS: Nystatin 500,000 UNITS/5 ML UDCUP SSW SCH ×4 (09:26→22:49)
[2021-07-13] MEDS: Digoxin 0.125 MG TAB PO SCH (09:26)
[2021-07-13] MEDS: Trospium 20 MG TAB PO SCH ×2 (09:26→21:07)
[2021-07-13] MEDS: Dexamethasone 4 MG TAB PO SCH (09:27)
[2021-07-13] MEDS: Acetaminophen 325 MG TAB PO PRN (09:27)
[2021-07-13] MEDS: Furosemide 40 MG TAB PO SCH (09:27)
[2021-07-13] MEDS: HYDROcodone/Acetaminophen 5/325 mg Tablet PO PRN (14:37)
[2021-07-13] MEDS: GUAIFENESIN SF SOLN 200 MG/10 ML UDCUP PO PRN (14:39)
[2021-07-13] MEDS: Atorvastatin Calcium 40 MG TAB PO SCH (21:05)
[2021-07-13] MEDS: traZODone HCl 50 MG TAB PO SCH (21:07)
[2021-07-13] MEDS: guaiFENesin ER 600 MG TAB PO SCH (22:48)
[2021-07-13] MEDS: Pramipexole Di-HCl 0.25 MG TAB PO SCH (22:49)
[2021-07-14 06:11] LABS: INR-International Normal Ratio 3.7; Prothrombin Time 36.7 sec (12.0-14.7)
[2021-07-14 06:19] LABS: Band 7 % (5-11); Hemoglobin 8.6 g/dL (12.0-16.0); Lymphocytes 9 % (21-51); MDiff Complete? YES; Mean Corpuscular HGB CONC 33.4 g/dL (32.0-36.0); Mean Platelet Volume 8.2 fL (7.4-10.4); Metamyelocyte 1 % (0-0); Monocytes 11 % (0-10); Myelocyte 2 % (0-0); Neutrophil 70 % (42-75); Platelet Count 253 thou/uL (130-400); Platelet Morphology Comment Appears Adequate; RBC Distribution Width 16.3 % (11.5-14.5); Red Blood Cell (RBC) Count 2.96 mill/uL (4.20-5.40); White Blood Cell (WBC) Count 6.2 thou/uL (4.8-10.8)
[2021-07-14] MEDS: Levothyroxine 150 MCG TAB PO SCH (07:04)
[2021-07-14] MEDS: Senokot S 8.6-50 MG TAB PO SCH ×2 (08:33→20:32)
[2021-07-14] MEDS: Trospium 20 MG TAB PO SCH ×2 (08:33→20:32)
[2021-07-14] MEDS: Carvedilol 6.25 MG TAB PO SCH ×3 (08:34→20:31)
[2021-07-14] MEDS: guaiFENesin ER 600 MG TAB PO SCH ×2 (08:34→20:32)
[2021-07-14] MEDS: Polyethylene Glycol 3350 17 GM Packet PO SCH (08:35)
[2021-07-14] MEDS: Furosemide 40 MG TAB PO SCH (08:35)
[2021-07-14] MEDS: Digoxin 0.125 MG TAB PO SCH ×2 (08:35→11:35)
[2021-07-14] MEDS: Dexamethasone 4 MG TAB PO SCH (08:35)
[2021-07-14] MEDS: Nystatin 500,000 UNITS/5 ML UDCUP SSW SCH ×4 (14:01→23:38)
[2021-07-14] MEDS: Mometasone 200 MCG/Formoterol 5 MCG 120 PUFF INHALER INH SCH ×2 (14:48→17:36)
[2021-07-14] MEDS: traZODone HCl 50 MG TAB PO SCH (20:32)
[2021-07-14] MEDS: Atorvastatin Calcium 40 MG TAB PO SCH (20:32)
[2021-07-14] MEDS: HYDROcodone/Acetaminophen 5/325 mg Tablet PO PRN (20:33)
[2021-07-14] MEDS: Pramipexole Di-HCl 1 MG TAB PO SCH (23:38)
[2021-07-14] MEDS: GUAIFENESIN SF SOLN 200 MG/10 ML UDCUP PO PRN (23:38)
[2021-07-15] MEDS: Levothyroxine 150 MCG TAB PO SCH (05:24)
[2021-07-15 06:58] LABS: Prothrombin Time 40.7 sec (12.0-14.7)
[2021-07-15 07:04] LABS: INR-International Normal Ratio 4.2
[2021-07-15 07:11] LABS: Anion Gap 11 mmol/L (10-20); BUN (Urea Nitrogen) 41 mg/dL (9.8-20.1); Calc. Creatinine Clearance 38 mL/min (70-130); Calcium 8.6 mg/dL (7.8-10.44); Carbon Dioxide 29 mmol/L (23-31); Chloride 96 mmol/L (98-107); Glucose 79 mg/dL (83-110); Potassium 4.1 mmol/L (3.5-5.1); Sodium 132 mmol/L (136-145)
[2021-07-15] MEDS: Trospium 20 MG TAB PO SCH ×2 (08:53→20:24)
[2021-07-15] MEDS: Furosemide 40 MG TAB PO SCH (08:53)
[2021-07-15] MEDS: Polyethylene Glycol 3350 17 GM Packet PO SCH (08:54)
[2021-07-15] MEDS: Dexamethasone 4 MG TAB PO SCH (08:54)
[2021-07-15] MEDS: Carvedilol 6.25 MG TAB PO SCH ×2 (08:54→20:24)
[2021-07-15] MEDS: Senokot S 8.6-50 MG TAB PO SCH ×2 (08:54→20:24)
[2021-07-15] MEDS: Digoxin 0.125 MG TAB PO SCH (08:55)
[2021-07-15] MEDS: guaiFENesin ER 600 MG TAB PO SCH ×2 (09:27→20:26)
[2021-07-15] MEDS: Nystatin 500,000 UNITS/5 ML UDCUP SSW SCH ×4 (09:28→20:24)
[2021-07-15] MEDS: Mometasone 200 MCG/Formoterol 5 MCG 120 PUFF INHALER INH SCH ×2 (09:30→17:14)
[2021-07-15] MEDS: Pramipexole Di-HCl 0.25 MG TAB PO SCH (19:26)
[2021-07-15] MEDS: HYDROcodone/Acetaminophen 5/325 mg Tablet PO PRN (20:24)
[2021-07-15] MEDS: traZODone HCl 50 MG TAB PO SCH (20:25)
[2021-07-15] MEDS: Pramipexole Di-HCl 1 MG TAB PO SCH (20:25)
[2021-07-15] MEDS: Atorvastatin Calcium 40 MG TAB PO SCH (20:25)
[2021-07-16] MEDS: Mometasone 200 MCG/Formoterol 5 MCG 120 PUFF INHALER INH SCH ×2 (05:12→18:22)
[2021-07-16] MEDS: Levothyroxine 150 MCG TAB PO SCH (05:12)
[2021-07-16 06:32] LABS: #Eosinphils 0.3 thou/uL (0.0-0.7); #Lymphocytes 1.2 thou/uL (1.20-3.40); #Monocytes 0.6 thou/uL (0.11-0.59); %Eosinophils 4.9 % (0.0-10.0); %Lymphocytes 19.6 % (21.0-51.0); %Monocytes 10.4 % (0.0-10.0); %Neutrophils 65.1 % (42.0-75.0); Hemoglobin 8.5 g/dL (12.0-16.0); Mean Corpuscular HGB CONC 33.8 g/dL (32.0-36.0); Mean Corpuscular Hemoglobin 29.2 pg (27.0-31.0); Mean Corpuscular Volume 86.6 fL (78.0-98.0); Mean Platelet Volume 7.7 fL (7.4-10.4); Platelet Count 264 thou/uL (130-400); RBC Distribution Width 16.2 % (11.5-14.5); White Blood Cell (WBC) Count 6.2 thou/uL (4.8-10.8)
[2021-07-16 06:45] LABS: INR-International Normal Ratio 3.5; Prothrombin Time 35.1 sec (12.0-14.7)
[2021-07-16 06:53] LABS: Anion Gap 16 mmol/L (10-20); BUN (Urea Nitrogen) 35 mg/dL (9.8-20.1); CRP (Inflammatory) 15.94 mg/dL (= or < 0.5); Calc. Creatinine Clearance 40 mL/min (70-130); Calcium 8.5 mg/dL (7.8-10.44); Carbon Dioxide 27 mmol/L (23-31); Chloride 94 mmol/L (98-107); Glucose 80 mg/dL (83-110); Potassium 3.8 mmol/L (3.5-5.1); Sodium 133 mmol/L (136-145)
[2021-07-16] MEDS: Digoxin 0.125 MG TAB PO SCH (08:33)
[2021-07-16] MEDS: Furosemide 40 MG TAB PO SCH (08:33)
[2021-07-16] MEDS: Dexamethasone 4 MG TAB PO SCH (08:35)
[2021-07-16] MEDS: guaiFENesin ER 600 MG TAB PO SCH ×2 (08:35→20:35)
[2021-07-16] MEDS: Senokot S 8.6-50 MG TAB PO SCH ×2 (08:35→20:40)
[2021-07-16] MEDS: Nystatin 500,000 UNITS/5 ML UDCUP SSW SCH ×4 (08:36→20:34)
[2021-07-16] MEDS: Trospium 20 MG TAB PO SCH ×2 (08:36→20:36)
[2021-07-16] MEDS: Polyethylene Glycol 3350 17 GM Packet PO SCH (08:36)
[2021-07-16] MEDS: Carvedilol 6.25 MG TAB PO SCH ×2 (08:39→20:39)
[2021-07-16] MEDS: Acetaminophen 325 MG TAB PO PRN ×2 (09:10→18:22)
[2021-07-16] MEDS: hydrOXYzine 10 MG TAB PO PRN (12:01)
[2021-07-16] MEDS: GUAIFENESIN SF SOLN 200 MG/10 ML UDCUP PO PRN ×2 (12:01→18:30)
[2021-07-16] MEDS: HYDROcodone/Acetaminophen 5/325 mg Tablet PO PRN ×2 (15:01→20:36)
[2021-07-16] MEDS ORDERED: Benzonatate 100 MG CAP PO PRN (19:20)
[2021-07-16] MEDS: Atorvastatin Calcium 40 MG TAB PO SCH (20:35)
[2021-07-16] MEDS: Pramipexole Di-HCl 1 MG TAB PO SCH (20:35)
[2021-07-16] MEDS: traZODone HCl 50 MG TAB PO SCH (20:35)
[2021-07-17] MEDS: Mometasone 200 MCG/Formoterol 5 MCG 120 PUFF INHALER INH SCH (05:30)
[2021-07-17] MEDS: Levothyroxine 150 MCG TAB PO SCH (05:30)
[2021-07-17 06:49] LABS: INR-International Normal Ratio 3.6; Prothrombin Time 35.8 sec (12.0-14.7)
[2021-07-17] MEDS: Carvedilol 6.25 MG TAB PO SCH (07:26)
[2021-07-17] MEDS: Digoxin 0.125 MG TAB PO SCH (08:32)
[2021-07-17] MEDS: Trospium 20 MG TAB PO SCH (08:32)
[2021-07-17] MEDS: Dexamethasone 4 MG TAB PO SCH (08:32)
[2021-07-17] MEDS: Furosemide 40 MG TAB PO SCH (08:33)
[2021-07-17] MEDS: guaiFENesin ER 600 MG TAB PO SCH (08:33)
[2021-07-17] MEDS: Polyethylene Glycol 3350 17 GM Packet PO SCH ×2 (08:34→08:53)
[2021-07-17] MEDS: Senokot S 8.6-50 MG TAB PO SCH ×2 (08:34→08:53)
[2021-07-17] MEDS: Nystatin 500,000 UNITS/5 ML UDCUP SSW SCH ×2 (08:34→13:36)
[2021-07-17] MEDS: HYDROcodone/Acetaminophen 5/325 mg Tablet PO PRN (09:57)
[2021-07-17 10:09] VITALS: TEMP 97.4
[2021-07-17 13:40] VITALS: BP 120/72
[2021-07-17] MEDS ORDERED: Warfarin Sodium 2 MG TAB PO SCH ×2 (17:00)
== END 2021-07-17 15:47 | disposition home health service (06) | DRG 811 ==
LOC: ERS 11:50 → SJJU 14:36 → T4-A 07-07 20:12
PROVIDERS: ADMIT Internal Medicine; ATTEND Internal Medicine
PROC: 8E0ZXY6 Isolation (ICD-10-PCS; principal; 2021-07-07)
DX: D62 Acute posthemorrhagic anemia (principal); U07.1 COVID-19; J96.21 Acute and chronic respiratory failure with hypoxia; T83.511A Infection and inflammatory reaction due to indwelling urethral catheter, initial encounter; N17.9 Acute kidney failure, unspecified; C64.9 Malignant neoplasm of unspecified kidney, except renal pelvis; E87.1 Hypo-osmolality and hyponatremia; I48.20 Chronic atrial fibrillation, unspecified; N18.4 Chronic kidney disease, stage 4 (severe); I13.0 Hypertensive heart and chronic kidney disease with heart failure and stage 1 through stage 4 chronic kidney disease, or unspecified chronic kidney disease; N39.0 Urinary tract infection, site not specified; I50.32 Chronic diastolic (congestive) heart failure; R79.1 Abnormal coagulation profile; K59.00 Constipation, unspecified; E03.9 Hypothyroidism, unspecified; E78.5 Hyperlipidemia, unspecified; K21.9 Gastro-esophageal reflux disease without esophagitis; I25.10 Atherosclerotic heart disease of native coronary artery without angina pectoris; Z96.641 Presence of right artificial hip joint; L98.8 Other specified disorders of the skin and subcutaneous tissue; J44.9 Chronic obstructive pulmonary disease, unspecified; B96.5 Pseudomonas (aeruginosa) (mallei) (pseudomallei) as the cause of diseases classified elsewhere; B37.9 Candidiasis, unspecified; Z95.2 Presence of prosthetic heart valve; Z89.512 Acquired absence of left leg below knee; Z79.82 Long term (current) use of aspirin; Z79.899 Other long term (current) drug therapy; Z90.5 Acquired absence of kidney; I25.2 Old myocardial infarction; Z86.010 Personal history of colon polyps; Z90.49 Acquired absence of other specified parts of digestive tract; Z90.710 Acquired absence of both cervix and uterus; Z88.5 Allergy status to narcotic agent; Z95.5 Presence of coronary angioplasty implant and graft; Z85.72 Personal history of non-Hodgkin lymphomas
CPT/HCPCS: 36415; 36416; 71045; 76775; 80048; 80053; 80162; 81001; 82550; 82565; 82728; 83540; 83550; 83880; 85014; 85018; 85025; 85046; 85610; 85730; 86140; 86850; 86900; 86901; 87077; 87086; 87186; 94640; 96374; C9113; J0696; J1650; J1940; J3490; J7050; J7620; J8540; U0003; U0005